=== PATIENT | male | born 1955 | race Caucasian/White ===

== ENCOUNTER 2022-01-25 15:27 | Inpatient (IN) | payer MEDICARE, SELFPAY ==
--- NOTE | 2022-01-12 15:19 | PC.NURSE ---
Report to the Outpatient Waiting Room, entrance under the green pavilion located off [facility], at time _1000 on date __01/24/22 . OR Time: _1200 . - You and your visitor will be asked to self-screen and do not enter if you have any COVID symptoms. - Only one visitor and NO children visitors are allowed at this time. - The patient visitor is requested to leave or wait in car when not with patient due to restrictions. - A mask is required within the hospital. Patients may have clear liquids (water, carbonated beverages, clear teas, apple juice) until 3 hours prior to surgery with a maximum of 20 ounces. - No food from midnight until time of surgery - Infants may have breast milk until 4 hours before surgery, infant formula 6 hours prior to surgery. - Children will be allowed to drink immediately following surgery. If applicable, please bring a bottle or sippy cup to assist with drinking. Juice, water, soda, and popsicles are readily available. For infants on formula, please bring formula the day of surgery. Pacifiers are allowed. Take the following medications with a SIP of water the morning of surgery: NONE Medications to discontinue per physician __PT STATES _CLOPIDOGREL 5 DAYS PRE OP PER DR GILMORE Date to take last dose 01/18/22 Please no make-up, nail nepalese, hairspray, perfume, deodorant, or body powder the day of surgery. No jewelry (including any body piercings) or valuables the day of surgery, leave them at home. Please take a shower or bath the night before, or the morning of, surgery with an antibacterial soap. Wear comfortable, loose fitting clothing. Children are encouraged to wear pajamas. - Jewelry must be removed prior to entering the operating room. Rings and piercings that are not removed may be cut off. - The hospital will not accept responsibility for valuables. - Please leave all valuables, including medications, at home the day of surgery. HIBICLENS SHOWER MORNING OF SURGERY If you are going home after surgery, a licensed local company truck driver must drive you home. - NO public transportation without another adult. - We recommend that an adult stay with you for 24 hours following discharge. - We also recommend that you do not drive, make important decision, drink alcoholic beverages, or take any drugs that were not prescribed by your health care provider for at least 24 hours after your discharge time. For Pediatric surgeries, we recommend two adults accompany the child home (only one inside the building at this time). Follow any additional instructions given to you from your surgeon. If you or anyone in your household have experienced Covid symptoms in the past week, please notify your surgeon or the nurse liaison at the phone number below for possible testing. Telephone instructions given to ___PATIENT and asked if any additional questions and then verbalized understanding. Patient advised to call surgeon office or pre surgery nurse liaison [phone] if any additional questions.
[2022-01-12 15:29] VITALS: BMI 38.5
--- NOTE | 2022-01-23 13:34 | P.PNAN_ITS ---
Anes - Initial Pre Proc Eval Procedure: Operation Date: 01/24/22 12:00 Proposed Procedures p Laparoscopic Repair Ventral Hernia with Mesh - Haroon Rodriguez MD s Removal of Left Arm Lipoma - Haroon Rodriguez MD Date/Time: 01/23/22 13:34 Surgeon: Haroon Rodriguez MD Pre Op Diagnosis: Ventral Hernia, Lt Arm Lipoma Patient Data Age: 66 Gender: M Height: 1.88 m Weight: 136.1 kg Allergies Allergy/AdvReac Type Severity Reaction Status Date / Time No Known Allergies Allergy Verified 01/24/22 12:17 Home Medications Medication Instructions Recorded Confirmed Type clopidogrel 75 mg tablet (Plavix) 75 mg PO DAILY 12/20/21 01/12/22 History olmesartan 40 mg tablet 40 mg PO DAILY 12/20/21 01/12/22 History omeprazole 40 mg capsule,delayed 40 mg PO DAILY 12/20/21 01/12/22 History release simvastatin 40 mg tablet 40 mg PO DAILY 12/20/21 01/12/22 History Patient hx anesthesia problems: none Family hx anesthesia problems: none Results Review: All pre-operative results and documents have been reviewed as part of the pre- operative evaluation. [facility] Past Medical History Medical History (Updated 01/23/22 @ 13:35 by Lance Ureña DO) COPD (chronic obstructive pulmonary disease) GERD (gastroesophageal reflux disease) High cholesterol Hypertension JON (obstructive sleep apnea) CPAP TIA (transient ischemic attack) 2015 Surgical History Surgical History H/O umbilical hernia repair Dr. 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 Informed Consent: The patient's anesthetic plan and its attendant risks and benefits were discussed with the patient/family/POA. Questions were solicited and answers provided to the satisfaction of the patient/family/POA.
[2022-01-24] VITALS (11 sets, daily range): BP systolic 138–166; BP diastolic 79–92; PULSE 66–98; RESP 12–216; TEMP 36.1–36.8; O2SAT 94–99
--- NOTE | 2022-01-24 11:42 | WPDHPUPDATE1 ---
History and Physical Update Update Date/Time: 01/24/22 11:42 History and Physical has been reviewed, including an updated exam of the patient. There are NO changes in the patient's condition. Risks, benefits, and alternatives have been discussed and questions answered. Patient agrees to proceed with procedure.
[2022-01-24] MEDS: LACTATED RINGERS 1,000 ML 30 ML IV CONT ×2 (12:00→17:09)
[2022-01-24] MEDS: ACETAMINOPHEN 500 MG TABLET 1000 MG PO (12:15)
[2022-01-24] MEDS: KETOROLAC 15 MG/ML VIAL (*BKC) IV PUSH (12:15)
--- NOTE | 2022-01-24 12:36 | ECG_ITS ---
Measurements Intervals [place] Rate: 61 P: 44 SD: 177 QRS: -10 QRSD: 128 T: 38 QT: 420 QTc: 424 Interpretive Statements SINUS RHYTHM RIGHT BUNDLE BRANCH BLOCK ABNORMAL ECG NO PREVIOUS ECG AVAILABLE FOR COMPARISON Electronically Signed On 01-24-2022 14:36:45 CDT by Art Bills D.O.
[2022-01-24] MEDS: ceFAZolin 3 GM/D5W 100 ML 100 ML IVPB (14:22)
[2022-01-24] MEDS: BUPIVACAINE/EPINEPHRINE 0.25% 50 ML VIAL INFILTRATE (16:50)
--- NOTE | 2022-01-24 17:22 | W.PM.PROC2 ---
Procedure Note - Detailed Date of Procedure 01/24/22 Pre-op Diagnosis Recurrent ventral Hernia, Lt Arm Lipoma Post-op Diagnosis Other (Recurrent ventral hernia, recurrent intramuscular left arm lipoma) Procedure Performed Excision 7 cm intramuscular recurrent left deltoid lipoma, laparoscopic repair of recurrent ventral hernia Surgeon Haroon Rodriguez MD Claims Representative Linda Bond [facility] Anesthesia General and Local (0.25% Marcaine with epinephrine) Indications Patient had a lipoma removed from the left deltoid area at least 15 years ago. Over time he developed a recurrent subcutaneous mass that has gotten larger and is bothersome. Exam in the office showed a recurrent lipoma about 7.6 cm in length. He has a scar at the lower edge of the recurrent lipoma from the previous excision. Patient also has a history of previous umbilical hernia repair at another facility. He could recall if mesh was used at that initial repair. He now has a painful bulge above the umbilicus consistent with a recurrent ventral hernia. He is taken to surgery now for excision of the recurrent lipoma as well as laparoscopic repair of the recurrent ventral hernia with mesh. Findings The lipoma measured 7 cm x 3 cm x 3 cm. It was intramuscular in the deltoid muscle. It was able to be completely excised. The hernia was a well-defined ventral hernia above the umbilicus. There was some suture material in the area of the umbilicus from the previous repair. This was removed. We did not see any other hernias in the area. The defect was small, only about 2 cm but the entire periumbilical area was thin and very vulnerable to additional hernia. Description of Procedure Patient was taken to surgery and placed in a supine position. He was induced into general anesthesia. The left upper arm as well as the entire abdomen was prepped and draped. We turned our attention 1st to the left upper arm. The area of the subcutaneous mass had been marked on the skin in the preoperative holding area. A transversely oriented incision over the mass was marked on the skin. Local was infiltrated in the area of the anticipated incision and in the deeper subcutaneous tissues. We also infiltrated local all around the mass as well. Incision was made deepened through the subcutaneous. Despite looking for a lipoma none was really found. We continued our dissection and then found a lipoma. It was the very superficial aspect of an intramuscular lipoma lying between the fibers of the left deltoid muscle near its insertion. We carefully dissected the deltoid fibers off the lipoma and then continued our dissection circumferentially exposing the lipoma throughout its length. I was then able to dissect the most proximal aspect of the lipoma down to its base. I dissected this upper aspect of the lipoma off the base and then continued this dissection towards the more distal aspect of the lipoma. Eventually we freed the distal aspects of the lipoma from the surrounding tissues and eventually dissected the entire lipoma free of the deltoid muscle. It was removed as 1 mass. I measured it and it was 7 cm x 3 cm x 3 cm. It was sent to pathology in formalin. The wound was inspected and made hemostatic. Any additional fatty tissue in the area of the lipoma was removed so as not to get yet another recurrence. The wound was hemostatic. I closed the subcutaneous fascia with interrupted 4-0 Vicryl suture. The skin was closed with interrupted subcuticular 4-0 Vicryl suture. The wound was dressed with Exofin surgical adhesive. We then covered this area with the drapes that had been placed previously and were the drapes used for the laparoscopic hernia repair. The abdomen was exposed adequately. The initial trocar was a 5 mm left subcostal trocar. This was then applied Medical optical trocar was placed in the abdominal cavity. We insufflated and were able to visualize the hernia. Two more left-sided trocars were placed. The lef
--- NOTE | 2022-01-24 18:20 | PC.NURSE ---
This patient, Niels Persaud, was admitted to 3 [facility] Surg Room 300-01. Patient/family oriented to hospital policies and general routines including ID bracelet, bed and alarms, visiting hours, pain management, procedures, bathroom and other care routines, personal items, smoking policy, room service/diet, and visiting hours. Information on how to activate the Rapid Response Team has been discussed. Patient/Family are encouraged to report perceived risks to care and to ask questions if they do not understand what they are told or what they should do.
[2022-01-24] MEDS: LACTATED RINGERS 1,000 ML 80 ML IV CONT (18:49)
[2022-01-24] MEDS: ACETAMINOPHEN 500 MG TABLET PO (22:40)
[2022-01-25 03:52] VITALS: BP 148/75; PULSE 70; RESP 16; TEMP 36.5; O2SAT 93
[2022-01-25] MEDS: LACTATED RINGERS 1,000 ML 80 ML IV CONT ×2 (06:20→19:40)
[2022-01-25 06:33] LABS: Hematocrit 40.4 % (42.0-52.0); Hemoglobin 13.7 g/dL (14.0-18.0); Mean Corpuscular HGB Conc 33.9 g/dl (32-36); Mean Corpuscular Hemoglobin 29.7 pg (26-34); Mean Corpuscular Volume 87.4 fl (80-100); Mean Platelet Volume 10.3 fl (7.4-10.4); Platelet Count Result 205 k/mm3 (150-375); Red Blood Count 4.62 M/mm3 (4.6-6.20); Red Cell Distribution Width 12.9 % (11.5-14.5); White Blood Count 12.9 K/mm3 (4.5-10.0)
[2022-01-25 06:44] LABS: Anion Gap 11 mmol/L (8-16); Blood Urea Nitrogen 22 mg/dL (9-20); Carbon Dioxide 22 mmol/L (22-30); Chloride 103 mmol/L (98-107); Estimated CRCL calculation 73 ml/min; Estimated Glomerular Filt Rate 55; Glucose 147 mg/dL (65-110); Sodium 136 mmol/L (137-145)
[2022-01-25 07:52] VITALS: BP 154/76; PULSE 70; RESP 18; TEMP 36.6; O2SAT 95
[2022-01-25] MEDS: ACETAMINOPHEN 500 MG TABLET PO ×2 (08:15→14:11)
[2022-01-25] MEDS: PANTOPRAZOLE 40 MG TABLET PO (08:15)
[2022-01-25] MEDS: OLMESARTAN MEDOXOMIL 20 MG TABLET 40 MG PO (08:16)
[2022-01-25] MEDS: SIMVASTATIN 20 MG TABLET 40 MG PO (08:16)
[2022-01-25] MEDS: BENZOCAINE/MENTHOL (*BKC) 18 EA LOZENGE 1 LOZENGE PO (08:29)
[2022-01-25] MEDS: ENOXAPARIN 40 MG/0.4 ML SYRINGE SUB-Q (08:30)
--- NOTE | 2022-01-25 08:51 | WPDANESPN ---
Anes - Prog Note Post-Op Date/Time: 01/25/22 08:51 Cardiovascular status: normal Respiratory status: normal Airway patency: baseline Mental status: baseline Post-Op hydration status: normal Vital Signs: Last Vital Signs Temp 36.6 C 01/25/22 07:52 Pulse 70 01/25/22 07:52 Resp 18 01/25/22 07:52 BP 154/76 H 01/25/22 07:52 Pulse Ox 95 01/25/22 07:52 O2 Del Method Room Air 01/24/22 18:29 O2 Flow Rate 8 01/24/22 17:20 Pain Score (VAS): 2 I/O: Intake & Output 01/24/22 01/25/22 01/25/22 23:59 07:59 15:59 Intake Total 100 1000 Output Total 200 Balance 100 800 Laboratory Tests 01/25/22 05:43 01/25/22 05:43 01/25/22 01/25/22 05:43 05:43 WBC 12.9 H RBC 4.62 Hgb 13.7 L Hct 40.4 L MCV 87.4 MCH 29.7 MCHC 33.9 RDW 12.9 Plt Count 205 MPV 10.3 Sodium 136 L Potassium 4.0 Chloride 103 Carbon Dioxide 22 Anion Gap 11 BUN 22 H Creatinine 1.30 Estim Creat Clear Calc 73 Estimated GFR 55 L Glucose 147 H Calcium 9.0 Post-procedural complaints: none Patient Feedback: Patient satisfied with anesthetic care.
[2022-01-25 11:52] VITALS: BP 149/80; PULSE 75; RESP 16; TEMP 36.7; O2SAT 95
--- NOTE | 2022-01-25 13:24 | PM.PNGS ---
Progress Note: A&P Assessment and Plan (1) Ventral hernia without obstruction or gangrene: Code(s): K43.9 - Ventral hernia without obstruction or gangrene Status: Chronic Assessment and Plan: appropriate postoperative incisional pain. Patient doing okay. Continues to use analgesics. Needs help with ambulation. Continue with in-hospital care. 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 (4) History of TIA (transient ischemic attack): Code(s): Z86.73 - Personal history of transient ischemic attack (TIA), and cerebral infarction without residual deficits Status: Chronic Subjective Subjective Date/Time Seen: 01/25/22 13:24 Post Op day: 1 Patient reports: still having pain (Patient's knees to couple of times and has been experiencing pretty severe abdominal pain especially with movement.), tolerating liquids well, no flatus, no bowel movement and afebrile Review of Systems Review of Systems: All systems reviewed & are unremarkable except as noted in HPI and below ( HPI) Exam Const: General: comfortable and no acute distress; No confusion Orientation/consciousness: patient oriented x3 and No confusion GI: Inspection: non-distended, incision ( incisions dry and healing well. Minimal bruising) and obesity GI Palp: Yes Soft to palpation, Yes Tenderness to palpation present (GI) ( diffuse but appropriate tenderness), No Guarding due to palpation present (GI) and No Rebound tenderness present Auscultation: normal bowel sounds Neuro: General: patient oriented x3, no focal motor deficits and No confusion Extrem: General: no calf tenderness and no edema Right upper extremity: shoulder/upper arm ( incision dry and intact, no hematoma or seroma.) tenderness and swelling; no ecchymosis and no crepitus Psych: Affect: normal affect Insight: Good insight present (Psych) Judgement: Good judgement present (Psych) Objective Data Vital Signs Vital Signs: Vital Signs - 24 hr 01/24/22 17:09 01/24/22 17:20 01/24/22 17:35 Temperature 36.3 C L Pulse Rate 98 79 84 Respiratory Rate 19 16 14 Blood Pressure 145/88 H 142/83 H 149/79 H Pulse Oximetry 98 99 96 Oxygen Delivery Simple Face Mask Simple Face Mask Room Air Oxygen Flow Rate 8 8 01/24/22 17:50 01/24/22 18:04 01/24/22 18:29 Temperature Pulse Rate 73 71 Respiratory Rate 12 18 Blood Pressure 142/85 H 151/88 H Pulse Oximetry 95 96 Oxygen Delivery Room Air Room Air Room Air Oxygen Flow Rate 01/24/22 18:20 01/24/22 18:35 01/24/22 19:05 Temperature 36.6 C 36.3 C L 36.2 C L Pulse Rate 72 75 72 Respiratory Rate 18 16 216 H Blood Pressure 141/89 H 139/88 138/92 H Pulse Oximetry 95 94 94 Oxygen Delivery Oxygen Flow Rate 01/24/22 19:52 01/24/22 23:52 01/25/22 03:52 Temperature 36.1 C L 36.8 C 36.5 C Pulse Rate 78 78 70 Respiratory Rate 18 18 16 Blood Pressure 165/86 H 166/83 H 148/75 H Pulse Oximetry 95 94 93 Oxygen Delivery Oxygen Flow Rate 01/25/22 07:52 01/25/22 11:52 Temperature 36.6 C 36.7 C Pulse Rate 70 75 Respiratory Rate 18 16 Blood Pressure 154/76 H 149/80 H Pulse Oximetry 95 95 Oxygen Delivery Oxygen Flow Rate Intake/Output Intake/Output: Intake & Output 01/22/22 01/23/22 01/24/22 01/25/22 23:59 23:59 23:59 23:59 Intake Total 200 1480 Output Total 200 Balance 200 1280 Meds/Results Medications: Active Medications Generic Name Dose Route Start Last Admin Trade Name Ricq PRN Reason Stop Dose Admin Acetaminophen 500 mg 01/24/22 18:07 01/25/22 08:15 Acetaminophen 500 Mg Tablet PO
[2022-01-25] MEDS: polyethylene glycoL 3350 17 GM POWD.PACK PO (14:11)
[2022-01-25 15:52] VITALS: BP 159/72; PULSE 74; RESP 20; TEMP 36.8; O2SAT 94
[2022-01-25] MEDS: HYDROcodone/acetaminophen (*CRX) 5-325 MG TABLET 1 TAB PO (19:37)
[2022-01-25] MEDS: SENNA/DOCUSATE SODIUM TABLET 2 TAB PO (19:39)
[2022-01-25 21:49] VITALS: BP 150/87; PULSE 65; RESP 18; TEMP 36.9; O2SAT 95
[2022-01-26] MEDS: ACETAMINOPHEN 500 MG TABLET PO ×3 (04:13→20:16)
[2022-01-26 06:00] VITALS: BP 146/87; PULSE 62; RESP 20; TEMP 36.6; O2SAT 97
[2022-01-26 07:49] LABS: Hemoglobin 12.7 g/dL (14.0-18.0); Mean Corpuscular HGB Conc 32.6 g/dl (32-36); Mean Corpuscular Hemoglobin 29.9 pg (26-34); Mean Corpuscular Volume 91.8 fl (80-100); Mean Platelet Volume 10.3 fl (7.4-10.4); Platelet Count Result 193 k/mm3 (150-375); Red Blood Count 4.25 M/mm3 (4.6-6.20); Red Cell Distribution Width 13.2 % (11.5-14.5); White Blood Count 6.8 K/mm3 (4.5-10.0)
[2022-01-26 08:06] LABS: Anion Gap 9 mmol/L (8-16); Blood Urea Nitrogen 18 mg/dL (9-20); Calcium 8.4 mg/dL (8.4-10.2); Carbon Dioxide 26 mmol/L (22-30); Chloride 106 mmol/L (98-107); Estimated CRCL calculation 79 ml/min; Estimated Glomerular Filt Rate > 60; Glucose 99 mg/dL (65-110); Potassium 4.1 mmol/L (3.4-5.0); Sodium 141 mmol/L (137-145)
[2022-01-26] MEDS: LACTATED RINGERS 1,000 ML 80 ML IV CONT (08:09)
[2022-01-26] MEDS: OLMESARTAN MEDOXOMIL 20 MG TABLET 40 MG PO (08:09)
[2022-01-26] MEDS: polyethylene glycoL 3350 17 GM POWD.PACK PO (08:09)
[2022-01-26] MEDS: SIMVASTATIN 20 MG TABLET 40 MG PO (08:09)
[2022-01-26] MEDS: ENOXAPARIN 40 MG/0.4 ML SYRINGE SUB-Q (08:10)
[2022-01-26] MEDS: PANTOPRAZOLE 40 MG TABLET PO (08:10)
--- NOTE | 2022-01-26 08:17 | PM.PNGS ---
Progress Note: A&P Assessment and Plan (1) Ventral hernia without obstruction or gangrene: Code(s): K43.9 - Ventral hernia without obstruction or gangrene Status: Chronic Assessment and Plan: still having quite a bit of postoperative pain. continue care in the hospital for assistance and pain control. Wounds healing well. 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 - Benign lipomatous neoplasm, unspecified Status: Chronic Assessment and Plan: Wound healing well (3) halfway (current) use of antithrombotics/antiplatelets: Code(s): Z79.02 - halfway (current) use of antithrombotics/antiplatelets Status: Chronic Assessment and Plan: possibly restart Plavix tomorrow (4) History of TIA (transient ischemic attack): Code(s): Z86.73 - Personal history of transient ischemic attack (TIA), and cerebral infarction without residual deficits Status: Chronic Subjective Subjective Date/Time Seen: 01/26/22 08:17 Post Op day: 2 Patient reports: still having pain ( very uncomfortable), tolerating liquids well ( tolerating low-fiber diet), no flatus, no bowel movement and afebrile Exam Const: General: cooperative, alert, awake and uncomfortable Nutritional Appearance: obese GI: Inspection: non-distended, incision ( incisions dry and healing well) and obesity GI Palp: Yes abdominal tenderness ( diffuse postoperative tenderness), Yes Soft to palpation, No Hernia present and No Palpable mass present Extrem: Left upper extremity: shoulder/upper arm ( incision dry and healing well) Objective Data Vital Signs Vital Signs: Vital Signs - 24 hr 01/25/22 11:52 01/25/22 15:52 01/25/22 21:49 Temperature 36.7 C 36.8 C 36.9 C Pulse Rate 75 74 65 Respiratory Rate 16 20 18 Blood Pressure 149/80 H 159/72 H 150/87 H Pulse Oximetry 95 94 95 01/26/22 06:00 Temperature 36.6 C Pulse Rate 62 Respiratory Rate 20 Blood Pressure 146/87 H Pulse Oximetry 97 Intake/Output Intake/Output: Intake & Output 01/23/22 01/24/22 01/25/22 01/26/22 23:59 23:59 23:59 23:59 Intake Total 200 3270 1200 Output Total 200 Balance 200 3070 1200 Meds/Results Medications: Active Medications Generic Name Dose Route Start Last Admin Trade Name Freq PRN Reason Stop Dose Admin Acetaminophen 500 mg 01/24/22 18:07 01/26/22 04:13 Acetaminophen 500 Mg Tablet PO 500 mg Q6H PRN Administration Mild Pain (1-3) or Fever Hydrocodone Bitart/Acetaminophen 1 tab 01/24/22 18:07 01/25/22 19:37 Hydrocodone/Acetaminophen (*Crx) 5-325 Mg Tablet PO 1 tab Q4H PRN Administration Pain Rated 4-6 Hydrocodone Bitart/Acetaminophen 1 tab 01/24/22 18:07 Hydrocodone/Acetaminophen (*Crx) 10-325 Mg Tablet PO Q4H PRN Pain Rated 7-10 Benzocaine 1 lozenge 01/25/22 08:05 01/25/22 08:29 Benzocaine/Menthol (*Bkc) 18 Ea Lozenge PO 1 lozenge PRN PRN Administration Cough Enoxaparin Sodium 40 mg 01/25/22 09:00 01/26/22 08:10 Enoxaparin 40 Mg/0.4 Ml Syringe SUB-Q 40 mg DAILY PEPITO Administration Lactated Ringer's 1,000 mls @ 80 mls/hr 01/24/22 18:07 01/26/22 08:09 Lr - Lactated Ringers Iv IV CONT 80 mls/hr .[id number] PEPITO Administration Ibuprofen 800 mg 01/24/22 18:07 Ibuprofen 400 Mg Tablet PO Q6H PRN Pain Rated 1-3 Morphine Sulfate 2 mg 01/24/22 18:07 Morphine Sulfate (*Crx) 2 Mg/Ml Inj IV PUSH Q2H PRN Pain Rated 4-6 Morphine Sulfate 4 mg 01/24/22 18:07 Morphine Sulfate (*Crx) 4 Mg/Ml Inj IV PUSH Q2H PRN Pain Rated 7-10 Naloxone HCl 0.1 mg 01/24/22 18:07 Naloxone Hcl 0.4 Mg/Ml Vial IV PUSH Q2M PRN Opiate Reversal Olmesartan 40 mg 01/25/22 09:00 01/26/22 08:09 Olmesartan Medoxomil 20 Mg Tablet PO 40 mg DAILY PEPITO Administration Ondansetron HCl 4 mg 01/24/22 18:07 Ondansetron Inj 4 Mg/2 Ml Vial IV PUSH Q4H PRN Nausea And Vomiting Pant
[2022-01-26 14:29] VITALS: BP 143/83; PULSE 70; RESP 18; TEMP 36.2; O2SAT 94
[2022-01-26] MEDS: SENNA/DOCUSATE SODIUM TABLET 2 TAB PO (20:17)
[2022-01-26] MEDS: BENZOCAINE/MENTHOL (*BKC) 18 EA LOZENGE 1 LOZENGE PO (21:31)
[2022-01-26 22:39] VITALS: BP 161/78; PULSE 66; RESP 18; TEMP 36.6; O2SAT 97
[2022-01-27] MEDS: BENZOCAINE/MENTHOL (*BKC) 18 EA LOZENGE 1 LOZENGE PO ×2 (00:01→08:18)
[2022-01-27 06:00] VITALS: BP 161/78; PULSE 56; RESP 18; TEMP 36.7; O2SAT 97
[2022-01-27 06:09] LABS: Hematocrit 40.1 % (42.0-52.0); Hemoglobin 13.5 g/dL (14.0-18.0); Mean Corpuscular HGB Conc 33.7 g/dl (32-36); Mean Corpuscular Hemoglobin 30.5 pg (26-34); Mean Corpuscular Volume 90.5 fl (80-100); Mean Platelet Volume 10.1 fl (7.4-10.4); Platelet Count Result 200 k/mm3 (150-375); Red Blood Count 4.43 M/mm3 (4.6-6.20); Red Cell Distribution Width 12.9 % (11.5-14.5); White Blood Count 6.6 K/mm3 (4.5-10.0)
[2022-01-27 06:19] LABS: Anion Gap 9 mmol/L (8-16); Blood Urea Nitrogen 14 mg/dL (9-20); Calcium 9.3 mg/dL (8.4-10.2); Carbon Dioxide 22 mmol/L (22-30); Chloride 107 mmol/L (98-107); Estimated CRCL calculation 86 ml/min; Estimated Glomerular Filt Rate > 60; Glucose 90 mg/dL (65-110); Potassium 3.8 mmol/L (3.4-5.0); Sodium 138 mmol/L (137-145)
[2022-01-27] MEDS: ACETAMINOPHEN 500 MG TABLET PO (08:09)
[2022-01-27] MEDS: ENOXAPARIN 40 MG/0.4 ML SYRINGE SUB-Q (08:09)
[2022-01-27] MEDS: PANTOPRAZOLE 40 MG TABLET PO (08:10)
[2022-01-27] MEDS: SIMVASTATIN 20 MG TABLET 40 MG PO (08:10)
[2022-01-27] MEDS: OLMESARTAN MEDOXOMIL 20 MG TABLET 40 MG PO (08:10)
[2022-01-27] MEDS: polyethylene glycoL 3350 17 GM POWD.PACK PO (08:14)
--- NOTE | 2022-01-27 09:31 | PM.PNGS ---
Progress Note: A&P Assessment and Plan (1) Ventral hernia without obstruction or gangrene: Code(s): K43.9 - Ventral hernia without obstruction or gangrene Status: Chronic Assessment and Plan: He thinks the postoperative pain is improve by 1/2 today and he is moving around with much better ability with less discomfort as he does so.. continue care in the hospital for assistance and pain control. Wounds healing well. Still no bowel movement so have ordered 1 dose of milk a magnesia for noon if no bowel movement by then. ( Patient continues to take daily Dulcolax tablets in the evening and MiraLax in a.m.). 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 Status: Chronic Assessment and Plan: possibly restart Plavix tomorrow (4) History of TIA (transient ischemic attack): Code(s): Z86.73 - Personal history of transient ischemic attack (TIA), and cerebral infarction without residual deficits Status: Chronic Subjective Subjective Date/Time Seen: 01/27/22 09:31 Post Op day: 3 (Gradually improving) Patient reports: no new complaints, feels better ( has much less generalized abdominal wall soreness), pain is less, flatus and no bowel movement Review of Systems Review of Systems: All systems reviewed & are unremarkable except as noted in HPI and below Constitutional: Constitutional: Reports as per HPI, Denies chills and Denies fever(s) Cardiovascular: Cardiovascular: Denies chest pain and Denies dyspnea Respiratory: Respiratory: Reports no additional respiratory complaints and Denies dyspnea Gastrointestinal: Gastrointestinal: Reports as per HPI and Denies bloating Musculoskeletal: Musculoskeletal: Reports no additional musculoskeletal complaints Neurologic: Denies memory loss Psychiatric: Psychiatric: Denies anxiety and Denies memory loss Exam Const: General: cooperative, alert, awake and uncomfortable Nutritional Appearance: obese GI: Inspection: non-distended, incision ( incisions dry and healing well) and obesity GI Palp: Yes abdominal tenderness ( diffuse postoperative tenderness), Yes Soft to palpation, No Hernia present and No Palpable mass present Extrem: Left upper extremity: shoulder/upper arm ( incision dry and healing well) Objective Data Vital Signs Vital Signs: Vital Signs - 24 hr 01/26/22 10:00 01/26/22 14:29 01/26/22 20:00 Temperature 36.2 C L Pulse Rate 70 Respiratory Rate 18 Blood Pressure 143/83 H Pulse Oximetry 94 Oxygen Delivery Room Air Room Air 01/26/22 22:39 01/27/22 06:00 01/27/22 08:00 Temperature 36.6 C 36.7 C Pulse Rate 66 56 L Respiratory Rate 18 18 Blood Pressure 161/78 H 161/78 H Pulse Oximetry 97 97 Oxygen Delivery Room Air Intake/Output Intake/Output: Intake & Output 01/24/22 01/25/22 01/26/22 01/27/22 23:59 23:59 23:59 23:59 Intake Total 200 3270 2470 500 Output Total 200 Balance 200 3070 2470 500 Meds/Results Medications: Active Medications Generic Name Dose Route Start Last Admin Trade Name Freq PRN Reason Stop Dose Admin Acetaminophen 500 mg 01/24/22 18:07 01/27/22 08:09 Acetaminophen 500 Mg Tablet PO 500 mg Q6H PRN Administration Mild Pain (1-3) or Fever Hydrocodone Bitart/Acetaminophen 1 tab 01/24/22 18:07 01/25/22 19:37 Hydrocodone/Acetaminophen (*Crx) 5-325 Mg Tablet PO 1 tab Q4H PRN Administration Pain Rated 4-6 Hydrocodone Bitart/Acetaminophen 1 tab 01/24/22 18:07 Hydrocodone/Acetaminophen (*Crx) 10-325 Mg Tablet PO Q4H PRN Pain Rated 7-10 Benzocaine 1 lozenge 01/25/22 08:05 01/27/22 08:18 Benzocaine/Menthol (*Bkc) 18 Ea Loze
[2022-01-27 09:45] VITALS: O2SAT 96
[2022-01-27] MEDS: MAGNESIUM HYDROXIDE SUSP 30 ML UDC PO (12:06)
[2022-01-27] MEDS: CLOPIDOGREL BISULFATE 75 MG TABLET PO (12:07)
[2022-01-27 14:00] VITALS: BP 151/75; PULSE 64; RESP 18; TEMP 36.3; O2SAT 97
[2022-01-27] MEDS: ACETAMINOPHEN 325 MG TABLET 650 MG PO ×2 (14:30→19:59)
[2022-01-27] MEDS: SENNA/DOCUSATE SODIUM TABLET 2 TAB PO (19:59)
[2022-01-27 22:00] VITALS: BP 171/81; PULSE 65; RESP 19; TEMP 36.4; O2SAT 95
[2022-01-28] MEDS: ACETAMINOPHEN 325 MG TABLET 650 MG PO ×2 (03:37→08:10)
[2022-01-28 05:51] VITALS: BP 169/88; PULSE 57; RESP 17; TEMP 36.5; O2SAT 95
[2022-01-28] MEDS: OLMESARTAN MEDOXOMIL 20 MG TABLET 40 MG PO (08:11)
[2022-01-28] MEDS: ENOXAPARIN 40 MG/0.4 ML SYRINGE SUB-Q (08:11)
[2022-01-28] MEDS: CLOPIDOGREL BISULFATE 75 MG TABLET PO (08:11)
[2022-01-28] MEDS: PANTOPRAZOLE 40 MG TABLET PO (08:11)
[2022-01-28] MEDS: SIMVASTATIN 20 MG TABLET 40 MG PO (08:11)
[2022-01-28] MEDS: polyethylene glycoL 3350 17 GM POWD.PACK PO (08:13)
--- NOTE | 2022-01-28 08:59 | PM.DS ---
DS: Admitting Diagnosis Discharge Date 01/28/2022 Admitting Diagnosis ventral incisional hernia [id number] obstruction or gangrene DS: Discharge Diagnosis Discharge Diagnosis (1) Ventral hernia without obstruction or gangrene: Code(s): K43.9 - Ventral hernia without obstruction or gangrene Status: Chronic Assessment and Plan: This was the main reason for the patient's admission. Please see the op note. Patient underwent laparoscopic repair of same with mesh. He also had excision of a lipoma. Patient had a significant amount of postop pain but did not want to take narcotic pain medication. His pain was controlled with Tylenol and or IV ibuprofen and he gradually improved. On the date of discharge he was tolerating a soft diet walking in the halls and moving well. He had a bowel movement the day of and the night before discharge. He was given home going instructions. (2) Mass of left upper extremity: Code(s): R22.32 - Localized swelling, mass and lump, left upper limb Status: Acute Assessment and Plan: Pathology was completed in this showed it to be a benign lipoma. (3) Obesity (BMI 30-39.9): Code(s): E66.9 - Obesity, unspecified Status: Acute Assessment and Plan: Encouraged patient to stay on a low-fat diet and until he was having normal bowel movements again a soft diet. 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 It was excised while he was under general anesthesia. Pathology report discussed with the patient showing benign lipoma. Incision is doing well with no signs of infection. 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 He plans to take Tylenol not NSAIDs at home for pain. (6) Hypertension: Code(s): I10 - Essential (primary) hypertension Status: Acute Assessment and Plan: Patient has resumed his normal medications for this. DS: Summary Hospital Course Reason for hospitalization: Postoperative care after laparoscopic ventral incisional hernia repair with mesh and excision of a lipoma Hospital Course: This was the main reason for the patient's admission. Please see the op note. Patient underwent laparoscopic repair of same with mesh. He also had excision of a lipoma. Patient had a significant amount of postop pain but did not want to take narcotic pain medication. His pain was controlled with Tylenol and or IV ibuprofen and he gradually improved. On the date of discharge he was tolerating a soft diet walking in the halls and moving well. He had a bowel movement the day of and the night before discharge. He was given home going instructions. Status at Discharge Cognitive/behavioral status at discharge: normal Functional status at discharge: independent ambulation Overall status at discharge: patient is not back to baseline ( still moving slowly but adequately for walking and caring for himself.) Time Spent with Patient Time attestation: Total time spent providing and/or coordinating discharge services: Time spent: Less than 30 minutes Exam Const: General: cooperative, comfortable, alert and awake Orientation/consciousness: patient oriented x3 HENMT: Head: normal to inspection Mouth: Yes moist mucous membranes Eyes: Sclera: sclerae normal Pupils: Equal, round and reactive pupils present Neck: Neck: normal visual inspection and no JVD Chest: Chest palpation & inspection: normal inspection of the chest Resp: Effort & Inspection: normal respiratory effort Auscultation: clear to auscultation bilaterally Cardio: Jugular venous distension:
== END 2022-01-28 09:50 | disposition home or self-care (01) | DRG 355 ==
LOC: ANHSURGERY 16:02 → ANH3MEDSUR 16:02
PROVIDERS: Admitting Provider Surgery; PCP Internal Medicine; Visit Provider Surgery
PROC: 0WUF4JZ Supplement Abdominal Wall with Synthetic Substitute, Percutaneous Endoscopic Approach (ICD-10-PCS; principal; 2022-01-24 13:00)
PROC: 0WUF4JZ Supplement Abdominal Wall with Synthetic Substitute, Percutaneous Endoscopic Approach (ICD-10-PCS; 2022-01-24 13:00)
DX: K43.2 Incisional hernia without obstruction or gangrene (principal); D17.9 Benign lipomatous neoplasm, unspecified; E66.9 Obesity, unspecified; Z68.38 Body mass index [BMI] 38.0-38.9, adult; I10 Essential (primary) hypertension; J44.9 Chronic obstructive pulmonary disease, unspecified; K21.9 Gastro-esophageal reflux disease without esophagitis; E78.00 Pure hypercholesterolemia, unspecified; G47.33 Obstructive sleep apnea (adult) (pediatric); Z79.02 Long term (current) use of antithrombotics/antiplatelets; Z79.899 Other long term (current) drug therapy; Z86.73 Personal history of transient ischemic attack (TIA), and cerebral infarction without residual deficits; Z87.891 Personal history of nicotine dependence
CPT/HCPCS: 36415; 80048; 85027; 88304; 93005; A9270; C1781; G0378; J0690; J1100; J1650; J1885; J2250; J2405; J2704; J3010; J7120

== ENCOUNTER 2022-03-29 08:18 | Outpatient (CLI) | payer MEDICARE, SELFPAY ==
--- NOTE | 2022-03-29 08:25 | EST_ITS ---
Patient Info Name: Niels Persaud Age: 66 years : 1955 Gender: Male Ht: 74 in Wt: 290 lbs BSA: 2.67 m2 BP: 136 / 73 mmHg Exam Date: 03/29/2022 9:16 AM Exam Location: [facility] Patient Status: Outpatient Admit Date: 03/29/2022 Staff Ordering Physician: Garry Mcgrath DO Ornament Setter: Sherrie Curran RDCS Attending Provider: GARRY MCGRATH MD Referring Physician: Sanju PIÑA; Exercise Technologist: Julisa Whalen RDCS Exercise Physician: Garry Mcgrath DO Exam Type: CA stress echo Study Info Indications R06.00 - Dyspnea, unspecified Treadmill exercise stress echocardiogram is performed. Summary 1. 1. Negative Yfn exercise stress test for ischemic ST changes by ECG criteria. 2. 2. Reduced functional capacity, achieving 7 METs of workload. 3. 3. Hypertensive response to exercise. 4. 4. Appropriate HR response to exercise. 5. 5. Appropriate HR recovery at 1 minute post exercise. 6. 6. Negative stress echocardiogram for ischemia by wall motion analysis. 7. 7. Patient informed of the above results. Stress Echo Findings Left Ventricle Appropriate increase in LV endocardial thickening with systole. Appropriate augmentation of contractility with systole. No wall motion abnormality. Left Ventricle Normal LV systolic function, no wall motion abnormality. Protocol: Yfn Stress ECG Details Stage: REST Duration (min): 0 min : 53 sec Speed (mph): 0.0 Grade (%): 0 HR (bpm): 57 SBP (mmHg): 136 DBP (mmHg): 73 METS: --- Stage: REST Duration (min): 7 min : 9 sec Speed (mph): 0.0 Grade (%): 0 HR (bpm): 62 SBP (mmHg): 136 DBP (mmHg): 73 METS: --- Stage: STAGE 1 Duration (min): 1 min : 0 sec Speed (mph): 1.7 Grade (%): 10 HR (bpm): 91 SBP (mmHg): 136 DBP (mmHg): 73 METS: --- Stage: STAGE 1 Duration (min): 2 min : 0 sec Speed (mph): 1.7 Grade (%): 10 HR (bpm): 99 SBP (mmHg): 136 DBP (mmHg): 73 METS: --- Stage: STAGE 1 Duration (min): 3 min : 0 sec Speed (mph): 1.7 Grade (%): 10 HR (bpm): 107 SBP (mmHg): 186 DBP (mmHg): 81 METS: --- Stage: STAGE 2 Duration (min): 1 min : 0 sec Speed (mph): 2.5 Grade (%): 12 HR (bpm): 125 SBP (mmHg): 186 DBP (mmHg): 81 METS: --- Stage: STAGE 2 Duration (min): 1 min : 40 sec Speed (mph): 0.0 Grade (%): 0 HR (bpm): 134 SBP (mmHg): 186 DBP (mmHg): 81 METS: --- Stage: RECOVERY Duration (min): 0 min : 19 sec Speed (mph): 0.0 Grade (%): 0 HR (bpm): 129 SBP (mmHg): 215 DBP (mmHg): 81 METS: --- Stage: RECOVERY Duration (min): 1 min : 19 sec Speed (mph): 0.0 Grade (%): 0 HR (bpm): 86 SBP (mmHg): 215 DBP (mmHg): 81 METS: --- Stage: RECOVERY Duration (min): 2 min : 19 sec Speed (mph): 0.0 Grade (%): 0 HR (bpm): 71 SBP (mmHg): 190 DBP (mmHg): 67 METS: --- Stage: RECOVERY Duration (min):
--- NOTE | 2022-03-29 08:27 | ECG_ITS ---
Measurements Intervals Art Rate: 64 P: 64 NV: 181 QRS: -5 QRSD: 124 T: 55 QT: 396 QTc: 410 Interpretive Statements SINUS RHYTHM RIGHT BUNDLE BRANCH BLOCK ABNORMAL ECG COMPARED TO ECG 01/24/2022 12:52:40 NO SIGNIFICANT CHANGES Electronically Signed On 03-29-2022 10:14:46 BUSINESS SYSTEMS MANAGER by Art Bills D.O.
== END 2022-03-29 08:19 | disposition home or self-care (01) ==
PROVIDERS: PCP Internal Medicine; Visit Provider Internal Medicine Cardiovascular Disease
DX: I10 Essential (primary) hypertension (principal); R06.09 Other forms of dyspnea; R94.31 Abnormal electrocardiogram [ECG] [EKG]; I45.10 Unspecified right bundle-branch block
CPT/HCPCS: 93005; 93351

== ENCOUNTER 2022-07-10 13:37 | Inpatient (IN) | payer MEDICARE, SELFPAY ==
--- NOTE | ~2022-07-10 | CT_ITS ---
EXAMINATION: CT abdomen pelvis wo con DATE: 07/10/2022 15:30 INDICATION: Abdominal pain and vomiting. TECHNIQUE: Computed tomography (CT) of the abdomen and pelvis was performed without intravenous contr ast. Automated exposure control and iterative reconstruction technique were employed. The dose-length product was 1538.08 mGy-cm. COMPARISON: CT abdomen and pelvis 09/11/2016 FINDINGS: The visualized portions of the lung bases demonstrate chronic right-sided pleural thickenin g with peripheral rounded atelectasis. No pleural effusion. The heart size is normal. There are coron richard artery calcifications. No pericardial effusion. There is a small sliding hiatal hernia. There is diffuse hepatic steatosis. The gallbladder, spleen, pancreas, adrenal glands, and kidneys are normal. There is no urolithiasis. The prostate is mildly enlarged. There is a left inguinal hernia containin g fat. There is diverticulosis of the colon without evidence of diverticulitis. The appendix is domenica l. There are multiple dilated loops of small bowel with transition point at the widemouthed ventral h ernia containing small bowel. There are no pathologically enlarged lymph nodes. There is no free intr aperitoneal fluid. 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 There are old healed right rib fractures. Th ere is mild thoracic and lumbar spondylosis. IMPRESSION: 1. Small bowel obstruction with transition point at the umbilical hernia. Reviewed, dictated and finalized at location A. ICE OPERATIONS MANAGER
--- NOTE | ~2022-07-10 | XR_ITS ---
Supine views of the abdomen Clinical history: Small bowel obstruction COMPARISON: 07/12/2022 Findings: NG tube remains in place. Bowel gas pattern is nonspecific. No evidence for obstruction or free air. No abnormal mass lesion or calcification is seen. Osseous structures are intact. Impression: NG tube in place, with nonspecific bowel gas pattern. There is contrast throughout large and small tracie wel. Reviewed, dictated and finalized at location . OMER SERVICE DRIVER Impression: NG tube in place, with nonspecific bowel gas pattern. There is contrast through out large and small bowel.
--- NOTE | ~2022-07-10 | XR_ITS ---
EXAMINATION: XR sm bowel follow through WS DATE: 07/12/2022 12:17 INDICATION: Small bowel obstruction. TECHNIQUE: Oral contrast was administered, and a time course of radiographs of the abdomen was obtain ed. Fluoroscopy of the small bowel was not performed. Fluoroscopy exposure time was 0 minutes. The to sherly number of images was 10. COMPARISON: CT abdomen and pelvis 07/10/2022 FINDINGS: The nasogastric tube tip is in the stomach. There are multiple dilated loops of proximal small bowel. At 3 hours, there is faint contrast in decompressed distal small bowel. IMPRESSION: 1. Partial small bowel obstruction. Reviewed, dictated and finalized at location A. ODONTIC LABORATORY TECHNICIAN
--- NOTE | ~2022-07-10 | XR_ITS ---
XR chest 2V 07/10/2022 14:17 Indication: Weakness and dyspnea Procedure: AP and lateral views of the chest Comparison: 09/13/2016 Findings: There is stable chronic scarring of the right mid and lower lung with pleural thickening. S table cardiomediastinal silhouette. Left lung clear. Impression: 1: No acute cardiopulmonary disease. 2: Stable scarring/atelectasis right mid and lower lung compared with prior study. Reviewed, dictated and finalized at location L. ONAL AIRLINE PILOT Impression: 1: No acute cardiopulmonary disease. 2: Stable scarring/atelectasis right mid and lower lung compared with prior [facility].
--- NOTE | ~2022-07-10 | XR_ITS ---
Portable upright view of the abdomen Clinical history: NG tube placement Findings: NG tube is in satisfactory position. Stomach is air distended, with probable distended smal l bowel loops in the upper abdomen. No abnormal mass lesion or calcification is seen. Osseous structu res are intact. Impression: NG tube in satisfactory position. Possible small bowel obstruction, partially imaged. Reviewed, dictated and finalized at location . SUPERVISING TECHNICAL OPERATOR Impression: NG tube in satisfactory position. Possible small bowel obstruction, partially imaged.
--- NOTE | ~2022-07-10 | US_ITS ---
EXAMINATION: US renal BI DATE: 07/10/2022 22:12 INDICATION: Acute kidney injury TECHNIQUE: Multiple grayscale and Doppler ultrasound images of the kidneys were obtained. COMPARISON: CT abdomen and pelvis 07/10/2022 FINDINGS: The right kidney measures 11.6 x 5.3 x 6.2 cm. The left kidney measures 11.5 x 6.6 x 7.1 cm. The kidn eys demonstrate normal parenchymal echogenicity. There is no hydronephrosis. The bladder is normal. IMPRESSION: Unremarkable renal sonogram findings. Reviewed, dictated and finalized at location K. DER SET UP OPERATOR EXTERNAL
[2022-07-10 13:37] VITALS: BP 106/65; PULSE 95; RESP 16; TEMP 36.6; O2SAT 99
--- NOTE | 2022-07-10 13:47 | ECG_ITS ---
Measurements Intervals [place] Rate: 77 P: 21 NV: 162 QRS: 14 QRSD: 133 T: 39 QT: 389 QTc: 442 Interpretive Statements SINUS RHYTHM RIGHT BUNDLE-BRANCH BLOCK ABNORMAL ECG COMPARED TO ECG 03/29/2022 09:52:22 NO SIGNIFICANT CHANGES Electronically Signed On 07-10-2022 15:29:53 PRESIDENT AND CMO by Froylan Caballero M.D.
[2022-07-10 13:59] LABS: Hematocrit 45.8 % (42.0-52.0); Hemoglobin 15.5 g/dL (14.0-18.0); Mean Corpuscular HGB Conc 33.8 g/dl (32-36); Mean Corpuscular Hemoglobin 29.6 pg (26-34); Mean Corpuscular Volume 87.6 fl (80-100); Platelet Count Result 321 k/mm3 (150-375); Red Blood Count 5.23 M/mm3 (4.6-6.20); Red Cell Distribution Width 13.6 % (11.5-14.5); White Blood Count 6.2 K/mm3 (4.5-10.0)
[2022-07-10 14:13] LABS: Alanine Aminotransferase 33 U/L (6-50); Albumin Level 4.1 g/dL (3.5-5.1); Alkaline Phosphatase 95 U/L (38-126); Anion Gap 13 mmol/L (8-16); Aspartate Amino Transferase 22 U/L (17-59); Blood Urea Nitrogen 86 mg/dL (9-20); Calcium 8.7 mg/dL (8.4-10.2); Carbon Dioxide 18 mmol/L (22-30); Chloride 103 mmol/L (98-107); Estimated CRCL calculation 17 ml/min; Estimated Glomerular Filt Rate 10; Glucose 101 mg/dL (65-110); Potassium 3.6 mmol/L (3.4-5.0); Sodium 134 mmol/L (137-145)
[2022-07-10 14:24] LABS: Band Neutrophils Percent 23 % (0-6); Eosinophils Absolute Manual 0.06 K/mm3 (0.02-0.5); Eosinophils Percent Manual 1 % (0-4); Lymphocytes Absolute Manual 1.17 K/mm3 (1.1-4.5); Monocytes Absolute Manual 1.42 K/mm3 (0.1-0.90); Monocytes Percent Manual 23 % (3-9); Myelocytes Percent 1 %; Neutrophils Absolute Manual 3.41 K/mm3 (1.3-6.7); Neutrophils Percent Manual 32 % (46-73); Platelet Estimate Adequate (Adequate); Promyelocytes Percent 1 %; Schistocytes None Seen (NORMAL); Total Cells Counted 100
--- NOTE | 2022-07-10 15:16 | ED.WEAKNESS ---
HPI - Weakness General Chief complaint: Weakness Stated complaint: Weakness Time Seen by Provider: 07/10/22 14:30 History of Present Illness HPI Narrative: Patient is a 66-year-old male with a history of hyperlipidemia, hypertension, TIA presenting with generalized weakness. Patient states that for the last 4 to 5 days he has had profuse vomiting and diarrhea. States that he has been increasingly weak and lightheaded. States he has only urinated twice in the last 5 days. Complains of diffuse abdominal pain. No fevers or chills, chest pain, shortness of breath, cough, sore throat, dysuria, leg swelling. Related Data Home Medications Medication Instructions Recorded Confirmed clopidogrel 75 mg tablet (Plavix) 75 mg PO DAILY 12/20/21 07/10/22 olmesartan 40 mg tablet 40 mg PO DAILY 12/20/21 07/10/22 famotidine 40 mg tablet 40 mg PO DAILY PRN Acid Reflux 07/10/22 07/10/22 Allergies Allergy/AdvReac Type Severity Reaction Status Date / Time No Known Allergies Allergy Verified 07/10/22 13:42 Review of Systems Review of Systems: All systems reviewed & are unremarkable except as noted in HPI and below PMFSH Past Medical History Medical History Chronic obstructive pulmonary disease Gastroesophageal reflux disease Gout Hyperlipidemia Hypertension Obstructive sleep apnea on CPAP Transient ischemic attack (2015) Surgical History Surgical History History of tonsillectomy History of umbilical hernia repair Dr. Norton History of ventral hernia repair (01/2022) Status post excision of lipoma Status post transsphenoidal pituitary resection Family History Family History Father Heart disease Mother Diabetes mellitus Breast cancer Cerebrovascular accident Social History Social History Social History: Surrogate medical decision maker: Dolores Arce, friend. Code status: Full code. Smoking packs per day: 0.5 Smoking cigarettes per day: 10.0 Years smoked: 5 Smoking pack-years: 2.50 Smoking status: Former smoker Alcohol intake: current Drinks per week: 8 Substance use: never Lack of Transportation: No Lack of Food: Never True Current Housing: I Have Housing Concerned About Future Housing: No Difficulty Paying Gas/Electric Bills: No Difficulty Paying for Meds: No Currently Unemployed: No Education: Bachelor's Degree Difficulty w/ Childcare or Family Care: No Living arrangements: alone Additional living arrangements comments: The patient lives in his own home in [place]. 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 Spiritual care concerns: No Exam Narrative: GENERAL: Appears fatigued, in no acute distress HEAD: Normocephalic, atraumatic. EYES: PERRLA and EOMI. ENT: Nares clear, no rhinorrhea or epistaxis. Mucous membranes dry NECK: Supple. CHEST: Clear to auscultation. No respiratory distress. HEART: Regular rate and rhythm. No murmur heard. Normal peripheral pulses. ABDOMEN: Soft, diffuse tenderness, no guarding or rebound EXTREMITIES: Normal range of motion. No edema. SKIN: Warm, dry, no rash. NEURO: No focal deficits. Alert and oriented x3. PSYCH: Normal mood and affect. Course Vital Signs Vital signs: Vital Signs Temperature 97.8 F 07/10/22 13:37 Pulse Rate 95 07/10/22 13:37 Respiratory Rate 16 07/10/22 13:37 Blood Pressure 106/65 07/10/22 13:37 Pulse Oximetry 99 07/10/22 13:37 Oxygen Delivery Room Air 07/10/22 13:37 Temperature 98 F 07/13/22 14:50 Pulse Rate 77 07/13/22 14:50 Respiratory Rate 18 07/13/22 14:50 Blood Pressure 151/85 H 07/13/22 14:50 Pulse Oximetry 98 07/13/22 14:50 Oxygen Deliver
[2022-07-10] MEDS: ONDANSETRON INJ 4 MG/2 ML VIAL IV PUSH ×2 (15:19→20:39)
[2022-07-10] MEDS: SODIUM CHLORIDE 0.9% IV 1,000 ML 999 ML IV CONT (15:22)
[2022-07-10 15:59] LABS: Appearance Urine Clear (Clear); Bilirubin Urine 1+ (Negative); Blood Urine Negative (Negative); Color Urine Yellow (Yellow); Glucose Urine UA Negative (Negative); Ketones Urine Trace mg/dL (Negative); Leukocyte Esterase Ur Negative LEU/UL (Negative); Nitrate Urine Negative (Negative); Protein Urine 1+ mg/dL (Negative); Specific Grav Ur >= 1.030 (1.001-1.035); Urobilinogen Urine 0.2 mg/dL (<2.0)
[2022-07-10 16:01] LABS: Squamous Epithelial Cell Urine Rare /hpf (Few); WBC Urine 0-3 /hpf
[2022-07-10 16:03] LABS: Add Urine Microscopic? YES
[2022-07-10 16:08] LABS: Lactic Acid Reflex 1.1 mmol/L (0.7-2.0)
[2022-07-10 16:10] LABS: Lipase 258 U/L (23-300); Magnesium 2.1 mg/dL (1.6-2.3); Uric Acid 15.5 mg/dL (3.5-8.5)
[2022-07-10 16:34] LABS: Influenza A QL RT-PCR Negative (Negative); Influenza B QL RT-PCR Negative (Negative); RSV RNA, RT-PCR Negative (Negative); SARS-CoV-2 RNA PCR Negative
[2022-07-10] MEDS: fentaNYL CITRATE INJ (*CRX) 100 MCG/2 ML VIAL IV PUSH (16:50)
[2022-07-10 17:29] VITALS: BP 104/59; PULSE 59; RESP 20; O2SAT 98
--- NOTE | 2022-07-10 17:30 | PM.IMHP ---
H&P: HPI History of Present Illness Date/Time: 07/10/22 17:30 Chief Complaint: Nausea, vomiting, diarrhea. Narrative: This is a 66-year-old male with hypertension, hyperlipidemia, gout, and history of TIA who presented to the emergency department via EMS from home for evaluation of nausea, vomiting, and diarrhea. Patient provides the following history. He has not felt well since with generalized abdominal discomfort, nausea, vomiting, and diarrhea. He estimates vomiting 10 times on ; that has since subsided and he has been able to hold down some liquid and chicken noodle soup. He has also had multiple episodes of nonbloody diarrhea each day. He has also noticed bloating, belching, and he has had hiccups. His abdomen has been aching in the periumbilical and epigastric regions which he initially attributed to vomiting and dry heaves. Each day he feels more and more weak and he feels dehydrated, remarking that he has only urinated twice since and only in small quantities. He has had chills but no known fever. He has not had any sick contacts and he denies recent travel an antibiotic use. He has not had any recent change in medications. He has had some hernia repairs in the past and does not think that his pain is at the site of those prior repairs. Also of note he reports exquisite pain in both great toes similar to previous gout attacks. Vital signs were stable on arrival to the emergency department, blood pressures have been running at the low end of normal. Pertinent labs include a WBC count of 6.2, hemoglobin 15.5, hematocrit 45.8, 32 neutrophils and 23 bands on manual differential, sodium 134, potassium 3.6, chloride 103, carbon dioxide 18, BUN 86, creatinine 5.30, lactic acid 1.1, uric acid 15.5. CT of the abdomen/pelvis showed small-bowel obstruction with transition point at the umbilical hernia. Dr. Ulrich was consulted by the ED physician he will see the patient in consultation. Review of Systems Review of Systems: Twelve systems were reviewed and are negative except for as per HPI. [facility] Past Medical History Medical History (Updated 07/10/22 @ 23:11 by Tita Lopez PA-C) Chronic obstructive pulmonary disease Gastroesophageal reflux disease Gout Hyperlipidemia Hypertension Obstructive sleep apnea on CPAP Transient ischemic attack (2016) Surgical History Surgical History (Updated 07/10/22 @ 23:09 by Tita Lopez PA-C) History of tonsillectomy History of umbilical hernia repair Dr. Norton History of ventral hernia repair (01/2022) Status post excision of lipoma Status post transsphenoidal pituitary resection Family History Family History Father Heart disease Mother Diabetes mellitus Breast cancer Cerebrovascular accident Social History Social History (Updated 07/10/22 @ 23:04 by Tita Lopez PA-C) Social History: Surrogate medical decision maker: Dolores Arce, friend. Code status: Full code. Smoking packs per day: 0.5 Smoking cigarettes per day: 10.0 Years smoked: 5 Smoking pack-years: 2.50 Smoking status: Former smoker Alcohol intake: current Drinks per week: 8 Substance use: never Lack of Transportation: No Lack of Food: Never True Current Housing: I Have Housing Concerned About Future Housing: No Difficulty Paying Gas/Electric Bills: No Difficulty Paying for Meds: No Currently Unemployed: No Education: Bachelor's Degree Difficulty w/ Childcare or Family Care: No Living arrangements: alone Additional living arrangements comments: The patient lives in his own home in [place]. 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 Spiritual care concerns: No Meds Home Medications and Allergies Home Medications Medication Instructions Recorded Confirmed Type clopi
--- NOTE | 2022-07-10 19:23 | ADMGEN ---
This patient, Niels Persaud, was admitted to Medical Room 260-01. Patient/family oriented to hospital policies and general routines including ID bracelet, bed and alarms, visiting hours, pain management, procedures, bathroom and other care routines, personal items, smoking policy, room service/diet, and visiting hours. Information on how to activate the Rapid Response Team has been discussed. Patient/Family are encouraged to report perceived risks to care and to ask questions if they do not understand what they are told or what they should do.
[2022-07-10 20:10] VITALS: BMI 37.3
[2022-07-10 20:11] VITALS: BP 101/54; PULSE 59; RESP 20; TEMP 36.2; O2SAT 100
[2022-07-10] MEDS: SODIUM CHLORIDE 0.9% IV 1,000 ML 100 ML IV CONT (20:39)
[2022-07-10 21:25] LABS: Anion Gap 12 mmol/L (8-16); Blood Urea Nitrogen 86 mg/dL (9-20); Calcium 8.7 mg/dL (8.4-10.2); Carbon Dioxide 16 mmol/L (22-30); Chloride 104 mmol/L (98-107); Estimated CRCL calculation 18 ml/min; Estimated Glomerular Filt Rate 11; Glucose 83 mg/dL (65-110); Potassium 3.5 mmol/L (3.4-5.0); Sodium 132 mmol/L (137-145)
[2022-07-10 21:42] LABS: CRP 14.1 mg/dL (<1.0); Creatine Kinase 82 U/L (55-170)
[2022-07-10 22:16] LABS: Erythrocyte Sedimentation Rate 22 mm/hr (0-20)
--- NOTE | 2022-07-10 23:38 | PC.NURSE ---
Pt has history of nasal cavity surgery, Tita Lopez notified and ordered to continue with NG placement.
[2022-07-10] MEDS: HYDROmorphone HCL INJ (*CRX) 1 MG/ML SYR 0.5 MG IV PUSH (23:53)
[2022-07-10] MEDS: LACTATED RINGERS 1,000 ML 150 ML IV CONT (23:56)
[2022-07-11 00:51] LABS: Creatinine Urine 148.9 mg/dL; Total Protein Urine Random 25 mg/dL; Ur Ttl Prot Creatinine Ratio 0.17 mg/mg (0-0.20)
[2022-07-11 01:00] LABS: Potassium Urine Random 10.5 meq/L; Sodium Urine Random 17 meq/L
[2022-07-11 01:27] LABS: Eosinophil Urine None Seen % (None Seen); Urine Eos QC 2nd Tech Confirmed
[2022-07-11 03:24] VITALS: BP 110/58; PULSE 66; RESP 20; TEMP 35.9; O2SAT 97
[2022-07-11 05:14] LABS: Hematocrit 42.1 % (42.0-52.0); Hemoglobin 14.2 g/dL (14.0-18.0); Mean Corpuscular HGB Conc 33.7 g/dl (32-36); Mean Corpuscular Hemoglobin 30.2 pg (26-34); Mean Corpuscular Volume 89.6 fl (80-100); Mean Platelet Volume 9.9 fl (7.4-10.4); Platelet Count Result 258 k/mm3 (150-375); Red Cell Distribution Width 13.6 % (11.5-14.5); White Blood Count 5.3 K/mm3 (4.5-10.0)
[2022-07-11 05:21] LABS: Alanine Aminotransferase 31 U/L (6-50); Albumin Level 3.7 g/dL (3.5-5.1); Alkaline Phosphatase 97 U/L (38-126); Anion Gap 11 mmol/L (8-16); Aspartate Amino Transferase 22 U/L (17-59); Bilirubin,Total 0.7 mg/dL (0.2-1.3); Blood Urea Nitrogen 83 mg/dL (9-20); Calcium 8.6 mg/dL (8.4-10.2); Carbon Dioxide 18 mmol/L (22-30); Chloride 105 mmol/L (98-107); Estimated CRCL calculation 23 ml/min; Estimated Glomerular Filt Rate 14; Glucose 84 mg/dL (65-110); Phosphorus 4.3 mg/dL (2.5-4.5); Potassium 3.6 mmol/L (3.4-5.0); Sodium 134 mmol/L (137-145); Uric Acid 15.5 mg/dL (3.5-8.5)
[2022-07-11 06:25] LABS: Band Neutrophils Percent 16 % (0-6); Neutrophils Absolute Manual 3.23 K/mm3 (1.3-6.7); Neutrophils Percent Manual 45 % (46-73); Total Cells Counted 100
[2022-07-11 06:26] LABS: Basophils Absolute Manual 0.05 K/mm3 (0.0-0.1); Basophils Percent Manual 1 % (0-1); Eosinophils Absolute Manual 0.21 K/mm3 (0.02-0.5); Eosinophils Percent Manual 4 % (0-4); Lymphocytes Absolute Manual 1.16 K/mm3 (1.1-4.5); Lymphocytes Percent Manual 22 % (18-44); Monocytes Absolute Manual 0.63 K/mm3 (0.1-0.90); Monocytes Percent Manual 12 % (3-9); Platelet Estimate Adequate (Adequate); Schistocytes None Seen (NORMAL)
[2022-07-11] MEDS: LACTATED RINGERS 1,000 ML 150 ML IV CONT ×3 (06:34→20:00)
[2022-07-11] MEDS: ONDANSETRON INJ 4 MG/2 ML VIAL IV PUSH ×2 (11:30→22:57)
--- NOTE | 2022-07-11 13:45 | PM.CNGS ---
Assessment and Plan Assessment and plan (1) Small bowel obstruction: Code(s): K56.609 - Unspecified intestinal obstruction, unspecified as to partial versus complete obstruction Status: Acute Assessment and Plan: Patient presented with nausea, vomiting, and diarrhea for almost [address] scan suggests small bowel obstruction with transition point at the area of the previous ventral hernia repair. No evidence of a bulge or obvious hernia on exam or CT, this appears to be more of diastasis recti. There is a possibility of intra-abdominal adhesions from the previous surgery causing the transition point to be in this location, but he does not appear to have a recurrent ventral hernia. His abdominal pain and bloating has already improved since NG placement. Will continue with conservative measures with NG tube decompression, bowel rest, IV fluids, and analgesics as needed. Will plan to get a water-soluble small bowel follow through tomorrow morning to further evaluate. Discussed with the patient that this typically improves with conservative treatment, but if there is no improvement or concern for a high grade obstruction, then he could require exploratory surgery. (2) Acute kidney injury: Code(s): N17.9 - Acute kidney failure, unspecified Status: Acute Assessment and Plan: Could be due to a combination of volume depletion from vomiting/diarrhea, poor oral intake, and dehydration. Renal US unremarkable. Improving with IV fluid hydration. Continue medical management per Hospitalist. (3) Hyperuricemia: Code(s): E79.0 - Hyperuricemia without signs of inflammatory arthritis and tophaceous disease Status: Acute (4) Gout: Code(s): M10.9 - Gout, unspecified Status: Acute (5) Obstructive sleep apnea on CPAP: Code(s): G47.33 - Obstructive sleep apnea (adult) (pediatric); Z99.89 - Dependence on other enabling machines and devices Status: Acute (6) senior care (current) use of antithrombotics/antiplatelets: Code(s): Z79.02 - senior care (current) use of antithrombotics/antiplatelets Status: Chronic Assessment and Plan: Hold Plavix for now. (7) History of TIA (transient ischemic attack): Code(s): Z86.73 - Personal history of transient ischemic attack (TIA), and cerebral infarction without residual deficits Status: Chronic (8) Hypertension: Code(s): I10 - Essential (primary) hypertension Status: Acute Plan I have discussed the patient's case and plan of care with Dr. Ulrich. Thank you for allowing us to see the patient in consultation and we will continue to follow along with you. History of Present Illness Consult details Consult date: 07/11/22 Reason for consult: other (Small-bowel obstruction) Requesting physician: Cecelia Espinal MD Narrative: This is a 66-year-old man with history of hypertension, hyperlipidemia, gout, and history of TIA, who presented to the emergency department with complaints vomiting, diarrhea, and abdominal pain. He had an acute onset of vomiting and diarrhea overnight about 1 week ago. His vomiting persisted for the next 4 days and he was unable to keep down any liquids. He developed epigastric and periumbilical abdominal pain and bloating over the past few days that he initially attributed to vomiting. He has had a hard time keeping anything other than liquids and some chicken noodle soup down. He has not been urinating regularly and only urinated 2 times for the 48 hours prior to presenting to the ER. He continued to have diarrhea up until 2 nights ago was his last episode diarrhea. He also reports chills no known fever. He has become progressively weak and felt dehydrated. The night before last, he additionally woke up in the night with severe pain in both great toes similar to previous gout attacks. He ultimately was brought into the ER yesterday for further evaluation via EMS. Labs showed a white blood
--- NOTE | 2022-07-11 14:03 | PM.CNNEP ---
Assessment and Plan Assessment and plan (1) Acute kidney injury: Code(s): N17.9 - Acute kidney failure, unspecified Status: Acute Assessment and Plan: likely due to a combination of dehydration/volume depletion from GI loss (vomiting/diarrhea), relative hypotension and use of ARB therapy prior to admission renal ultrasound without obstruction urine studies pending holding ARB renal function has improved with current interventions follow trend of repeat labs and UOP (2) Small bowel obstruction: Code(s): K56.609 - Unspecified intestinal obstruction, unspecified as to partial versus complete obstruction Status: Acute Assessment and Plan: as evidence of symptoms as well as imaging on admission CT scan with small bowel obstruction with transition point at the area of the previous ventral hernia repair s/p NG tube placement with some improvement in symptoms conitnue pain control and IVF Surgery following (3) Hypertension: Code(s): I10 - Essential (primary) hypertension Status: Chronic Assessment and Plan: well controlled if not on the lower end of normal holding BP medications follow trend of hemodynamics (4) Metabolic acidosis: Code(s): E87.20 - Acidosis, unspecified Status: Acute Assessment and Plan: due to a combination of MELISSA and GI losses follow trend for now if worsens, consider adding bicarb to IVFs Will continue to follow. History of Present Illness Reason for Consult Consult date: 07/11/22 Reason for consult: acute renal failure Chief Complaint Chief complaint: MELISSA History of Present Illness Narrative: The patient is a 66-year-old male with a past medical history as outlined below who presented to [facility] Emergency room for further evaluation of nausea, vomiting, and diarrhea. The patient has not been doing well since last . It was around that time when he started having issues with generalized abdominal discomfort in association with nausea, vomiting, and diarrhea. He reports episodes of vomiting at least 10 times on that day and eventually it seemed to subside on its own. Unfortunately, this symptom was further complicated by multiple episodes of diarrhea in association with bloating, belching, and hiccups. He knows the abdominal pain was localized to his periumbilical / epigastric area with no associated radiation. In the following days with these symptoms he states that he has been progressively getting weaker and weaker and has not been able to eat or drink anything due to the symptoms and he has noted a decline in his urine output as well. He reports subjective chills but no overt fevers and denies any recent new medication changes with regard to antibiotics or food or sick contacts. Given the persistence of the symptoms, he presented to the ER for further assessment. Workup and evaluation in the emergency room demonstrated the patient to be relatively stable with regard to hemodynamics although his blood pressure was on the lower end of normal and routine blood test demonstrated normal white blood cell count but there was a left shift present. His chemistry was significant for a mild metabolic acidosis in association with Jung id renal dysfunction with a BUN of 86 and a creatinine of 5.3. His lactic acid was normal but his uric acid level was quite elevated 15.5. He subsequent underwent a CT scan of his abdomen pelvis which demonstrated a small bowel obstruction. General surgery was consulted with regard to the small bowel obstruction and an NG tube was placed in attempt to provide decompression and improvement in his symptoms. IV fluids were initiated and he was subsequently admitted to the hospital for further evaluation and therapy. Renal consultation was requested due to his acute kidney injury/ acute renal failure. From review his records, the patient has normal renal function at baseline
[2022-07-11] MEDS: BENZOCAINE/MENTHOL (*BKC) 18 EA LOZENGE 1 LOZENGE PO (14:26)
--- NOTE | 2022-07-11 15:38 | PM.IMPN ---
Progress Note: A&P Assessment and Plan (1) Small bowel obstruction: Code(s): K56.609 - Unspecified intestinal obstruction, unspecified as to partial versus complete obstruction Status: Acute Assessment and Plan: Presented with abdominal pain, nausea, and vomiting. CT on presentation showed small-bowel obstruction with transition point and umbilical hernia continue with NG decompression appreciate general surgery recommendations NPO diet IV fluids while NPO analgesics and antiemetics available as needed plan for small-bowel follow-through tomorrow to assess obstruction (2) Acute kidney injury: Code(s): N17.9 - Acute kidney failure, unspecified Status: Acute Assessment and Plan: Acute kidney injury is likely due to a combination of hypovolemia from dehydration given poor oral intake, vomiting, and diarrhea in addition to lower blood pressures from the same. may be worsened due to hyperuricemia, however no crystals noted in urine creatinine has improved from presentation (5.9) down to 4.2 today continue with IV fluid rehydration renal ultrasound unremarkable appreciate nephrology recommendations continue to trend renal function (3) Hyperuricemia: Code(s): E79.0 - Hyperuricemia without signs of inflammatory arthritis and tophaceous disease Status: Acute Assessment and Plan: uric acid is elevated at 15.5 and patient endorses right great toe pain consistent with prior gout flare not a candidate for colchicine given his renal function steroids considered, however patient requested to defer given improvement in pain may need to consider starting uric acid lowering therapy as an outpatient following resolution of acute illness and improvement in renal function (4) Gout: Code(s): M10.9 - Gout, unspecified Status: Acute Assessment and Plan: see above (5) Obstructive sleep apnea on CPAP: Code(s): G47.33 - Obstructive sleep apnea (adult) (pediatric); Z99.89 - Dependence on other enabling machines and devices Status: Chronic Assessment and Plan: CPAP held while NG tube is in place (6) Hyperlipidemia: Code(s): E78.5 - Hyperlipidemia, unspecified Status: Chronic Assessment and Plan: LFTs reviewed and stable to continue atorvastatin when no longer NPO (7) Gastroesophageal reflux disease: Code(s): K21.9 - Gastro-esophageal reflux disease without esophagitis Status: Chronic Assessment and Plan: IV pantoprazole while NPO (8) Chronic obstructive pulmonary disease: Code(s): J44.9 - Chronic obstructive pulmonary disease, unspecified Status: Chronic Assessment and Plan: not in acute exacerbation. Albuterol as needed Subjective Date/time seen: 07/11/22 15:38 Interval history: date of service: 07/11/2022 Niels Persaud is 66-year-old male with a history of hypertension, hyperlipidemia, gout, COPD, JON on CPAP, GERD, and TIA who is seen in follow-up for small bowel obstruction. Patient reports that he feels poorly today. He is bothered by his NG tube and has a dry, scratchy throat. He feels dehydrated and has very poor energy. He does endorse mid abdominal pain that does improve with analgesics. He states that the pain medications are helping to decrease his stress and allow him to have some rest. He is not passing flatus. No bowel movements. Denies fever, chills, nausea, or vomiting. Feels unsteady on his feet. Denies dizziness or lightheadedness. No urinary symptoms. Endorses pain in his right great toe, consistent with previous gout flares. patient states that his symptoms have improved. Did discuss considering steroids for flare as he is not a candidate for colchicine, however he states that at this time he is feeling improved and does not feel that any treatment is required. Review of Systems Review of Systems:
[2022-07-11] MEDS: PANTOPRAZOLE SODIUM IV 40 MG VIAL IV PUSH (17:33)
[2022-07-11 18:36] VITALS: BP 151/75; PULSE 74; RESP 16; TEMP 36.2; O2SAT 97
[2022-07-11 18:37] VITALS: BP 147/78; BP 151/75; PULSE 74; RESP 16; TEMP 36.2; O2SAT 97
[2022-07-11 18:38] VITALS: BP 142/68
[2022-07-11 22:00] VITALS: BP 142/69; PULSE 78; RESP 18; TEMP 36.7; O2SAT 98
[2022-07-12] MEDS: LACTATED RINGERS 1,000 ML 150 ML IV CONT ×3 (02:41→20:23)
[2022-07-12 05:28] VITALS: BP 150/73; PULSE 79; RESP 18; TEMP 36.5; O2SAT 98
[2022-07-12 06:09] LABS: Hematocrit 41.5 % (42.0-52.0); Mean Corpuscular HGB Conc 33.7 g/dl (32-36); Mean Corpuscular Hemoglobin 29.3 pg (26-34); Mean Corpuscular Volume 86.8 fl (80-100); Mean Platelet Volume 9.9 fl (7.4-10.4); Platelet Count Result 254 k/mm3 (150-375); Red Blood Count 4.78 M/mm3 (4.6-6.20); Red Cell Distribution Width 13.5 % (11.5-14.5); White Blood Count 8.1 K/mm3 (4.5-10.0)
[2022-07-12 06:23] LABS: Anion Gap 13 mmol/L (8-16); Blood Urea Nitrogen 59 mg/dL (9-20); Calcium 8.9 mg/dL (8.4-10.2); Carbon Dioxide 18 mmol/L (22-30); Chloride 110 mmol/L (98-107); Estimated CRCL calculation 38 ml/min; Estimated Glomerular Filt Rate 26; Glucose 80 mg/dL (65-110); Potassium 3.4 mmol/L (3.4-5.0); Sodium 141 mmol/L (137-145)
[2022-07-12] MEDS: PANTOPRAZOLE SODIUM IV 40 MG VIAL IV PUSH (07:53)
--- NOTE | 2022-07-12 13:15 | P.PNIM_ITS ---
Progress Note: A&P Assessment and Plan (1) Small bowel obstruction: Code(s): K56.609 - Unspecified intestinal obstruction, unspecified as to partial versus complete obstruction Status: Acute Assessment and Plan: * Presented with abdominal pain, nausea, and vomiting. * CT on presentation showed small-bowel obstruction with transition point and umbilical hernia * continue with NG decompression * appreciate general surgery recommendations * NPO diet * IV fluids while NPO * analgesics and antiemetics available as needed * small-bowel follow-through indicated continuing bowel obstruction (2) Acute kidney injury: Code(s): N17.9 - Acute kidney failure, unspecified Status: Acute Assessment and Plan: * BUN/Cr at admission 86/5.30, currently trending down at 59/2.50 * likely related to dehydration from nausea, vomiting, diarrhea, and poor intake * Baseline appears to be a Cr of 1.0-1.2 * continue with IV fluid rehydration * renal ultrasound unremarkable * FENa score is 0.5% indicating failure is pre-renal * appreciate nephrology recommendations * continue to trend renal function (3) Gout: Code(s): M10.9 - Gout, unspecified Status: Acute Assessment and Plan: * Uric acid is elevated at 15.5 with complaints of right great toe pain * Not a candidate at this time for PO therapy with new renal failure * steroids considered, however patient requested to defer given improvement in pain * Consider Allopurinol with resolution of renal failure * Uric acid level in the am * Try one dose of steroids IV to see if it would help (4) Obstructive sleep apnea on CPAP: Code(s): G47.33 - Obstructive sleep apnea (adult) (pediatric); Z99.89 - Dependence on other enabling machines and devices Status: Chronic Assessment and Plan: * CPAP held while NG tube is in place (5) Hyperlipidemia: Code(s): E78.5 - Hyperlipidemia, unspecified Status: Chronic Assessment and Plan: * LFTs reviewed and stable to continue atorvastatin when no longer NPO (6) Gastroesophageal reflux disease: Code(s): K21.9 - Gastro-esophageal reflux disease without esophagitis Status: Chronic Assessment and Plan: * IV pantoprazole while NPO (7) Chronic obstructive pulmonary disease: Code(s): J44.9 - Chronic obstructive pulmonary disease, unspecified Status: Chronic Assessment and Plan: * not in acute exacerbation. Albuterol as needed Time Spent With Patient Time: 52 minutes Time with patient: Greater than 35 minutes Subjective Date/time seen: 07/12/221314 Interval history: 07/12/221314 Patient seems a little frustrated. Patient is wanting to eat however he is stating that he is not having any gas. He did state that he was having little gas but nothing substantial. NG tube was hooked up and it did drain about 100 mL. He denies any nausea, vomiting. He also denies any further abdominal distension or pain. He did state that he had been his toes better and he is afraid to take steroids as he is afraid is going to affect everything else. He is also wanting some Tylenol. He denies any chest pain or shortness of breath. He is asking for Tylenol. Talked to him about one dose of steroids to see if it would help with the toe pain. 07/11/2022 Niels Persaud is 66-year-old male with a history of hypertension, hyp
--- NOTE | 2022-07-12 13:15 | PM.IMPN ---
Progress Note: A&P Assessment and Plan (1) Small bowel obstruction: Code(s): K56.609 - Unspecified intestinal obstruction, unspecified as to partial versus complete obstruction Status: Acute Assessment and Plan: Presented with abdominal pain, nausea, and vomiting. CT on presentation showed small-bowel obstruction with transition point and umbilical hernia continue with NG decompression appreciate general surgery recommendations NPO diet IV fluids while NPO analgesics and antiemetics available as needed small-bowel follow-through indicated continuing bowel obstruction (2) Acute kidney injury: Code(s): N17.9 - Acute kidney failure, unspecified Status: Acute Assessment and Plan: BUN/Cr at admission 86/5.30, currently trending down at 59/2.50 likely related to dehydration from nausea, vomiting, diarrhea, and poor intake Baseline appears to be a Cr of 1.0-1.2 continue with IV fluid rehydration renal ultrasound unremarkable FENa score is 0.5% indicating failure is pre-renal appreciate nephrology recommendations continue to trend renal function (3) Gout: Code(s): M10.9 - Gout, unspecified Status: Acute Assessment and Plan: Uric acid is elevated at 15.5 with complaints of right great toe pain Not a candidate at this time for PO therapy with new renal failure steroids considered, however patient requested to defer given improvement in pain Consider Allopurinol with resolution of renal failure Uric acid level in the am Try one dose of steroids IV to see if it would help (4) Obstructive sleep apnea on CPAP: Code(s): G47.33 - Obstructive sleep apnea (adult) (pediatric); Z99.89 - Dependence on other enabling machines and devices Status: Chronic Assessment and Plan: CPAP held while NG tube is in place (5) Hyperlipidemia: Code(s): E78.5 - Hyperlipidemia, unspecified Status: Chronic Assessment and Plan: LFTs reviewed and stable to continue atorvastatin when no longer NPO (6) Gastroesophageal reflux disease: Code(s): K21.9 - Gastro-esophageal reflux disease without esophagitis Status: Chronic Assessment and Plan: IV pantoprazole while NPO (7) Chronic obstructive pulmonary disease: Code(s): J44.9 - Chronic obstructive pulmonary disease, unspecified Status: Chronic Assessment and Plan: not in acute exacerbation. Albuterol as needed Time Spent With Patient Time: 52 minutes Time with patient: Greater than 35 minutes Subjective Date/time seen: 07/12/221314 Interval history: 07/12/221314 Patient seems a little frustrated. Patient is wanting to eat however he is stating that he is not having any gas. He did state that he was having little gas but nothing substantial. NG tube was hooked up and it did drain about 100 mL. He denies any nausea, vomiting. He also denies any further abdominal distension or pain. He did state that he had been his toes better and he is afraid to take steroids as he is afraid is going to affect everything else. He is also wanting some Tylenol. He denies any chest pain or shortness of breath. He is asking for Tylenol. Talked to him about one dose of steroids to see if it would help with the toe pain. 07/11/2022 Niels Persaud is 66-year-old male with a history of hypertension, hyperlipidemia, gout, COPD, JON on CPAP, GERD, and TIA who is seen in follow-up for small bowel obstruction. Patient reports that he feels poorly today. He is bothered by his NG tube and has a dry, scratchy throat. He feels dehydrated and has very poor energy. He does endorse mid abdominal pain that does improve with analgesics. He states that the pain medications are helping to decrease his stress and allow him to have some rest. He is not passing flatus. No bowel movements. Denies fever, ch
[2022-07-12 13:57] VITALS: O2SAT 92
[2022-07-12 14:00] VITALS: BP 159/77; PULSE 69; RESP 16; TEMP 36.6; O2SAT 97
[2022-07-12 14:03] VITALS: BP 149/78
[2022-07-12 14:06] VITALS: BP 141/75
--- NOTE | 2022-07-12 14:10 | P.PNNP_ITS ---
Progress Note: A&P Assessment and Plan (1) Acute kidney injury: Code(s): N17.9 - Acute kidney failure, unspecified Status: Acute Assessment and Plan: * improving * likely due to a combination of dehydration/volume depletion from GI loss (vomiting/diarrhea), relative hypotension and use of ARB therapy prior to a dmission * evaluation to date: * renal ultrasound without obstruction * urine studies consistent with pre-renal azotemia * urine eosinophils negative * holding ARB for now * follow trend of repeat labs and UOP (2) Small bowel obstruction: Code(s): K56.609 - Unspecified intestinal obstruction, unspecified as to partial versus complete obstruction Status: Acute Assessment and Plan: * as evidence of symptoms as well as imaging on admission * CT scan with small bowel obstruction with transition point at the area of the previous ventral hernia repair * s/p NG tube placement with some improvement in symptoms * conitnue pain control and IVF * Surgery following (3) Hypertension: Code(s): I10 - Essential (primary) hypertension Status: Chronic Assessment and Plan: * improving * holding BP medications * follow trend of hemodynamics (4) Metabolic acidosis: Code(s): E87.20 - Acidosis, unspecified Status: Acute Assessment and Plan: * due to a combination of MELISSA and GI losses * follow trend for now * if worsens, consider adding bicarb to IVFs Will continue to follow. Subjective Date/time seen: 07/12/22 14:10 Overall, he states he feels better -- no further abdominal bloating, nausea, or vomiting with NG tube placement; he acutally states he is hungry; he has noted an increased in urine output as well with IVFs; no other acute issues voiced at this time. Exam Narrative: General: WD/WN male in NAD Heart: normal S1 and S2; no rub Lungs: clear to auscultation Abdomen: soft, mild TTP, nondistended, hypoactive bowel sounds Extremities: no cyanosis or clubbing; no edema Skin: warm and dry Objective Data Vital Signs Vital Signs: Vital Signs Temp Pulse Resp BP Pulse Ox O2 Del Method 07/12/22 14:06 141/75 H 07/12/22 14:03 149/78 H 07/12/22 14:00 97.9 F 69 16 97 07/12/22 14:00 159/77 H 07/12/22 13:57 92 Room Air 07/12/22 05:28 97.7 F 79 18 150/73 H 98 07/11/22 22:00 98.1 F 78 18 142/69 H 98 07/11/22 18:38 142/68 H 07/11/22 18:37 147/78 H 07/11/22 18:37 97.1 F L 74 16 151/75 H 97 07/11/22 18:36 97.1 F L 74 16 151/75 H 97 Intake/Output Intake/Output: Intake & Output 07/09/22 07/10/22 07/11/22 07/12/22 23:59 23:59 23:59 23:59 Intake Total 1400 3100 2000 Output Total 1800 1550 Balance 1400 1300 450 Meds/Results Medications: Active Medications Generic Name Dose Route Start Last Admin Trade Name Freq PRN Reason Stop Dose Admin Albuterol 2 puff 07/11/22 16:04 Albuterol Sulfate (*Sp) Aerosol 1 Puff INHALATION Q6HRT PRN Shortness Of Breath Benzocaine 1 lozenge 07/11/22 13:22 07/11/22 14:26 Benzocaine/Menthol (*Bkc) 18
--- NOTE | 2022-07-12 14:10 | PM.PNNEP ---
Progress Note: A&P Assessment and Plan (1) Acute kidney injury: Code(s): N17.9 - Acute kidney failure, unspecified Status: Acute Assessment and Plan: improving likely due to a combination of dehydration/volume depletion from GI loss (vomiting/diarrhea), relative hypotension and use of ARB therapy prior to admission evaluation to date: renal ultrasound without obstruction urine studies consistent with pre-renal azotemia urine eosinophils negative holding ARB for now follow trend of repeat labs and UOP (2) Small bowel obstruction: Code(s): K56.609 - Unspecified intestinal obstruction, unspecified as to partial versus complete obstruction Status: Acute Assessment and Plan: as evidence of symptoms as well as imaging on admission CT scan with small bowel obstruction with transition point at the area of the previous ventral hernia repair s/p NG tube placement with some improvement in symptoms conitnue pain control and IVF Surgery following (3) Hypertension: Code(s): I10 - Essential (primary) hypertension Status: Chronic Assessment and Plan: improving holding BP medications follow trend of hemodynamics (4) Metabolic acidosis: Code(s): E87.20 - Acidosis, unspecified Status: Acute Assessment and Plan: due to a combination of MELISSA and GI losses follow trend for now if worsens, consider adding bicarb to IVFs Will continue to follow. Subjective Date/time seen: 07/12/22 14:10 Overall, he states he feels better -- no further abdominal bloating, nausea, or vomiting with NG tube placement; he acutally states he is hungry; he has noted an increased in urine output as well with IVFs; no other acute issues voiced at this time. Exam Narrative: General: WD/WN male in NAD Heart: normal S1 and S2; no rub Lungs: clear to auscultation Abdomen: soft, mild TTP, nondistended, hypoactive bowel sounds Extremities: no cyanosis or clubbing; no edema Skin: warm and dry Objective Data Vital Signs Vital Signs: Vital Signs Temp Pulse Resp BP Pulse Ox O2 Del Method 07/12/22 14:06 141/75 H 07/12/22 14:03 149/78 H 07/12/22 14:00 97.9 F 69 16 97 07/12/22 14:00 159/77 H 07/12/22 13:57 92 Room Air 07/12/22 05:28 97.7 F 79 18 150/73 H 98 07/11/22 22:00 98.1 F 78 18 142/69 H 98 07/11/22 18:38 142/68 H 07/11/22 18:37 147/78 H 07/11/22 18:37 97.1 F L 74 16 151/75 H 97 07/11/22 18:36 97.1 F L 74 16 151/75 H 97 Intake/Output Intake/Output: Intake & Output 07/09/22 07/10/22 07/11/22 07/12/22 23:59 23:59 23:59 23:59 Intake Total 1400 3100 2000 Output Total 1800 1550 Balance 1400 1300 450 Meds/Results Medications: Active Medications Generic Name Dose Route Start Last Admin Trade Name Freq PRN Reason Stop Dose Admin Albuterol 2 puff 07/11/22 16:04 Albuterol Sulfate (*Sp) Aerosol 1 Puff INHALATION Q6HRT PRN Shortness Of Breath Benzocaine 1 lozenge 07/11/22 13:22 07/11/22 14:26 Benzocaine/Menthol (*Bkc) 18 Ea Lozenge PO 1 lozenge PRN PRN Administration Sore Throat Hydromorphone HCl 0.5 mg 07/10/22 22:55 07/10/22 23:53 Hydromorphone Hcl Inj (*Crx) 1 Mg/Ml Syr IV PUSH 0.5 mg Q3H PRN Administration Pain Rated 7-10 Lactated Ringer's 1,000 mls @ 150 mls/hr 07/10/22 23:25 07/12/22 12:28 Lr - Lactated Ringers Iv IV CONT 150 mls/hr .Q6H40M PEPITO Administration Acetaminophen 1,000 mg in 100 mls @ 400 mls/hr 07/12/22 14:19 Ofirmev 1,000 Mg Ivpb IVPB 07/13/22 14:18 Q6H PRN Pain Rated 4-6 Ondansetron HCl 4 mg 07/10/22 20:21 07/11/22 22:57 Ondansetron Inj 4 Mg/2 Ml Vial IV PUSH 4 mg Q6H PRN Administration Nausea And Vomiting Pantoprazole Sodium 40 mg 07/11/22 16:05 07/12/22 07:53 Pantoprazole Sodium Iv 40 Mg Vial IV PUSH 40 mg QAM PEPITO Administ
--- NOTE | 2022-07-12 14:30 | PM.PNGS ---
Progress Note: A&P Assessment and Plan (1) Small bowel obstruction: Code(s): K56.609 - Unspecified intestinal obstruction, unspecified as to partial versus complete obstruction Status: Acute Assessment and Plan: SBS today showed partial small bowel obstruction. Still some dilated small bowel with transit to more decompressed distal small bowel at 3 hours. He still has high NG output. Starting to pass some flatus this afternoon, but no bowel movement. Will continue NG tube decompression with bowel rest again today Repeat abdominal x-ray tomorrow morning. If he improves and starts having more bowel function, then could consider removing his NG tube and start slowly advancing his diet. Encouraged to try ambulating today (2) Acute kidney injury: Code(s): N17.9 - Acute kidney failure, unspecified Status: Acute Assessment and Plan: Continues to improve daily, creatinine down to 2.5 (3) Hyperuricemia: Code(s): E79.0 - Hyperuricemia without signs of inflammatory arthritis and tophaceous disease Status: Acute (4) Gout: Code(s): M10.9 - Gout, unspecified Status: Acute (5) Obstructive sleep apnea on CPAP: Code(s): G47.33 - Obstructive sleep apnea (adult) (pediatric); Z99.89 - Dependence on other enabling machines and devices Status: Chronic (6) care home (current) use of antithrombotics/antiplatelets: Code(s): Z79.02 - care home (current) use of antithrombotics/antiplatelets Status: Chronic Assessment and Plan: Plavix on hold (7) History of TIA (transient ischemic attack): Code(s): Z86.73 - Personal history of transient ischemic attack (TIA), and cerebral infarction without residual deficits Status: Chronic (8) Hypertension: Code(s): I10 - Essential (primary) hypertension Status: Acute Plan I have discussed the patient's case and plan of care with Dr. Ulrich. Subjective Subjective Date/Time Seen: 07/12/22 14:30 Patient reports: no new complaints, still having pain, voiding w/o difficulty (increased urination since admission), flatus, no bowel movement and nausea Interval history: Patient seen this afternoon following his SBS. He reports having some nausea after receiving the contrast but this has improved since being in the room and being hooked back to suction. No vomiting. He feels like he is still having epigastric abdominal pain that is not much better than yesterday. No bloating. Has only required a dose of Dilaudid once last night. He had a little flatus this afternoon but no BM. Review of Systems Review of Systems: ROS unchanged Exam Const: General: no acute distress Orientation/consciousness: patient oriented x3 GI: Inspection: other (less distended today) GI Palp: Yes Soft to palpation, Yes Tenderness to palpation present (GI) (epigastrum), No Guarding due to palpation present (GI), No Hernia present (no obvious bulge or hernia) and No Rebound tenderness present Auscultation: Hypoactive bowel sounds present (better today) Objective Data Vital Signs Vital Signs: Vital Signs - 24 hr 07/11/22 18:36 07/11/22 18:37 07/11/22 18:37 Temperature 97.1 F L 97.1 F L Pulse Rate 74 74 Respiratory Rate 16 16 Blood Pressure 151/75 H 151/75 H 147/78 H Pulse Oximetry 97 97 Oxygen Delivery 07/11/22 18:38 07/11/22 22:00 07/12/22 05:28 Temperature 98.1 F 97.7 F Pulse Rate 78 79 Respiratory Rate 18 18 Blood Pressure 142/68 H 142/69 H 150/73 H Pulse Oximetry 98 98 Oxygen Delivery 07/12/22 13:57 Temperature Pulse Rate Respiratory Rate Blood Pressure Pulse Oximetry 92 Oxygen Delivery Room Air Intake/Output Intake/Output: Intake & Output 07/09/22 07/10/22 07/11/22 07/12/22 23:59 23:59 23:59 23:59 Intake Total 1400 3100 2000 Output Total 1800 1550 Balance 1400 1300 450 Meds/Results Medications: Active Medications Generic Name Dose Route Start L
[2022-07-12] MEDS: methylPREDNISolone SOD SUCC 125 MG VIAL IV PUSH (15:47)
[2022-07-12 20:00] VITALS: BP 151/77; PULSE 84; RESP 18; TEMP 36.7; O2SAT 93
[2022-07-12] MEDS: BENZOCAINE/MENTHOL (*BKC) 18 EA LOZENGE 1 LOZENGE PO (20:50)
[2022-07-13] VITALS (9 sets, daily range): BP systolic 151–169; BP diastolic 77–88; PULSE 63–89; RESP 18–20; TEMP 36.6–36.7; O2SAT 94–98
[2022-07-13] MEDS: LACTATED RINGERS 1,000 ML 150 ML IV CONT ×3 (03:06→18:31)
[2022-07-13 05:14] LABS: Hematocrit 44.4 % (42.0-52.0); Hemoglobin 14.6 g/dL (14.0-18.0); Mean Corpuscular HGB Conc 32.9 g/dl (32-36); Mean Corpuscular Hemoglobin 29.4 pg (26-34); Mean Corpuscular Volume 89.3 fl (80-100); Platelet Count Result 295 k/mm3 (150-375); Red Blood Count 4.97 M/mm3 (4.6-6.20); Red Cell Distribution Width 14.1 % (11.5-14.5); White Blood Count 14.6 K/mm3 (4.5-10.0)
[2022-07-13 08:18] LABS: Band Neutrophils Percent 12 % (0-6); Lymphocytes Absolute Manual 1.46 K/mm3 (1.1-4.5); Metamyelocytes Percent 2 %; Monocytes Absolute Manual 0.43 K/mm3 (0.1-0.90); Monocytes Percent Manual 3 % (3-9); Myelocytes Percent 1 %; Neutrophils Absolute Manual 12.26 K/mm3 (1.3-6.7); Neutrophils Percent Manual 72 % (46-73); Platelet Estimate Adequate (Adequate); Schistocytes None Seen (NORMAL); Total Cells Counted 100
[2022-07-13 08:19] LABS: Atypical Lymphocytes Present; Burr Cells 1+ (NORMAL)
[2022-07-13] MEDS: PANTOPRAZOLE SODIUM IV 40 MG VIAL IV PUSH (09:01)
--- NOTE | 2022-07-13 10:30 | P.PNIM_ITS ---
Progress Note: A&P Assessment and Plan (1) Small bowel obstruction: Code(s): K56.609 - Unspecified intestinal obstruction, unspecified as to partial versus complete obstruction Status: Acute Assessment and Plan: * Presented with abdominal pain, nausea, and vomiting. * CT on presentation showed small-bowel obstruction with transition point and umbilical hernia * NG tube removed at this time * appreciate general surgery recommendations * Clear liquids * analgesics and antiemetics available as needed * small-bowel follow-through indicated continuing bowel obstruction (07/12/22) * KUB (07/13/22) nonspecific bowel gas pattern, contrast throughout large and small bowel (2) Acute kidney injury: Code(s): N17.9 - Acute kidney failure, unspecified Status: Acute Assessment and Plan: * BUN/Cr at admission 86/5.30, currently trending down at 53/2.00 * likely related to dehydration from nausea, vomiting, diarrhea, and poor intake * Baseline appears to be a Cr of 1.0-1.2 * continue with IV fluid rehydration * renal ultrasound unremarkable * FENa score is 0.5% indicating failure is pre-renal * appreciate nephrology recommendations * continue to trend renal function (3) Gout: Code(s): M10.9 - Gout, unspecified Status: Acute Assessment and Plan: * Uric acid is elevated at 15.5 with complaints of right great toe pain * Currently 17.9 * Not a candidate at this time for PO therapy with new renal failure * steroids considered, however patient requested to defer given improvement in pain * Consider Allopurinol with resolution of renal failure * Solumedrol 125mg IV once given 07/12/22 (4) Obstructive sleep apnea on CPAP: Code(s): G47.33 - Obstructive sleep apnea (adult) (pediatric); Z99.89 - Dependence on other enabling machines and devices Status: Chronic Assessment and Plan: * CPAP held while NG tube is in place (5) Hyperlipidemia: Code(s): E78.5 - Hyperlipidemia, unspecified Status: Chronic Assessment and Plan: * LFTs reviewed and stable to continue atorvastatin when no longer NPO (6) Gastroesophageal reflux disease: Code(s): K21.9 - Gastro-esophageal reflux disease without esophagitis Status: Chronic Assessment and Plan: * IV pantoprazole while NPO (7) Chronic obstructive pulmonary disease: Code(s): J44.9 - Chronic obstructive pulmonary disease, unspecified Status: Chronic Assessment and Plan: * not in acute exacerbation. Albuterol as needed Time Spent With Patient Time: 53 minutes Time with patient: Greater than 35 minutes Subjective Date/time seen: 07/13/22 1030 Interval history: 07/13/22 103 Patient is feeling better today. Patient did state that he was going to have a bowel movement and was able to walk to the bathroom. He denies any current chest pain, shortness a breath, nausea, vomiting, diarrhea or constipation. White count is slightly elevated however he did get a dose of steroids. NG tube was removed by General surgery. Diet was advanced 07/12/22 1315 Patient seems a little frustrated. Patient is wanting to eat however he is stating that he is not having any gas. He did state that he was having little gas but nothing substantial. NG tube was hooked up and it did drain about 100 mL. He denies any nausea, vomiting. He also denies any further abdo
--- NOTE | 2022-07-13 10:30 | PM.IMPN ---
Progress Note: A&P Assessment and Plan (1) Small bowel obstruction: Code(s): K56.609 - Unspecified intestinal obstruction, unspecified as to partial versus complete obstruction Status: Acute Assessment and Plan: Presented with abdominal pain, nausea, and vomiting. CT on presentation showed small-bowel obstruction with transition point and umbilical hernia NG tube removed at this time appreciate general surgery recommendations Clear liquids analgesics and antiemetics available as needed small-bowel follow-through indicated continuing bowel obstruction (07/12/22) KUB (07/13/22) nonspecific bowel gas pattern, contrast throughout large and small bowel (2) Acute kidney injury: Code(s): N17.9 - Acute kidney failure, unspecified Status: Acute Assessment and Plan: BUN/Cr at admission 86/5.30, currently trending down at 53/2.00 likely related to dehydration from nausea, vomiting, diarrhea, and poor intake Baseline appears to be a Cr of 1.0-1.2 continue with IV fluid rehydration renal ultrasound unremarkable FENa score is 0.5% indicating failure is pre-renal appreciate nephrology recommendations continue to trend renal function (3) Gout: Code(s): M10.9 - Gout, unspecified Status: Acute Assessment and Plan: Uric acid is elevated at 15.5 with complaints of right great toe pain Currently 17.9 Not a candidate at this time for PO therapy with new renal failure steroids considered, however patient requested to defer given improvement in pain Consider Allopurinol with resolution of renal failure Solumedrol 125mg IV once given 07/12/22 (4) Obstructive sleep apnea on CPAP: Code(s): G47.33 - Obstructive sleep apnea (adult) (pediatric); Z99.89 - Dependence on other enabling machines and devices Status: Chronic Assessment and Plan: CPAP held while NG tube is in place (5) Hyperlipidemia: Code(s): E78.5 - Hyperlipidemia, unspecified Status: Chronic Assessment and Plan: LFTs reviewed and stable to continue atorvastatin when no longer NPO (6) Gastroesophageal reflux disease: Code(s): K21.9 - Gastro-esophageal reflux disease without esophagitis Status: Chronic Assessment and Plan: IV pantoprazole while NPO (7) Chronic obstructive pulmonary disease: Code(s): J44.9 - Chronic obstructive pulmonary disease, unspecified Status: Chronic Assessment and Plan: not in acute exacerbation. Albuterol as needed Time Spent With Patient Time: 53 minutes Time with patient: Greater than 35 minutes Subjective Date/time seen: 07/13/22 1030 Interval history: 07/13/22 1030 Patient is feeling better today. Patient did state that he was going to have a bowel movement and was able to walk to the bathroom. He denies any current chest pain, shortness a breath, nausea, vomiting, diarrhea or constipation. White count is slightly elevated however he did get a dose of steroids. NG tube was removed by General surgery. Diet was advanced 07/12/22 1315 Patient seems a little frustrated. Patient is wanting to eat however he is stating that he is not having any gas. He did state that he was having little gas but nothing substantial. NG tube was hooked up and it did drain about 100 mL. He denies any nausea, vomiting. He also denies any further abdominal distension or pain. He did state that he had been his toes better and he is afraid to take steroids as he is afraid is going to affect everything else. He is also wanting some Tylenol. He denies any chest pain or shortness of breath. He is asking for Tylenol. Talked to him about one dose of steroids to see if it would help with the toe pain. 07/11/2022 Niels Persaud is 66-year-old male with a history of hypertension, hyperlipidemia, gout, COPD, JON on CPAP, GERD, and TIA who is seen
--- NOTE | 2022-07-13 11:46 | PM.PNGS ---
Progress Note: A&P Assessment and Plan (1) Small bowel obstruction: Code(s): K56.609 - Unspecified intestinal obstruction, unspecified as to partial versus complete obstruction Status: Acute Assessment and Plan: Showing signs of resolution. Will remove NG today, start clear liquids. Discussed plan with patient. If obstruction recurs, will need to consider laparoscopy or laparotomy. (2) Acute kidney injury: Code(s): N17.9 - Acute kidney failure, unspecified Status: Acute Assessment and Plan: improving with hydration Subjective Subjective Date/Time Seen: 07/13/22 11:46 Interval history: Bowels moving. No nausea or bloating. High NG output overnight but patient eating a lot of ice chips. No abdominal pain. Exam GI: Inspection: non-distended GI Palp: Yes Soft to palpation, No Tenderness to palpation present (GI) and No Guarding due to palpation present (GI) Auscultation: normal bowel sounds Objective Data Vital Signs Vital Signs: Vital Signs - 24 hr 07/12/22 13:57 07/12/22 14:00 07/12/22 14:00 Temperature 36.6 C Pulse Rate 69 Respiratory Rate 16 Blood Pressure 159/77 H Pulse Oximetry 92 97 Oxygen Delivery Room Air 07/12/22 14:03 07/12/22 14:06 07/12/22 20:00 Temperature 36.7 C Pulse Rate 84 Respiratory Rate 18 Blood Pressure 149/78 H 141/75 H 151/77 H Pulse Oximetry 93 Oxygen Delivery 07/13/22 05:23 07/13/22 10:24 07/13/22 10:27 Temperature 36.7 C Pulse Rate 77 66 68 Respiratory Rate 18 Blood Pressure 153/82 H 163/81 H 166/80 H Pulse Oximetry 94 Oxygen Delivery 07/13/22 10:30 07/13/22 08:50 Temperature Pulse Rate 89 Respiratory Rate Blood Pressure 155/88 H Pulse Oximetry Oxygen Delivery Room Air Intake/Output Intake/Output: Intake & Output 07/10/22 07/11/22 07/12/22 07/13/22 23:59 23:59 23:59 23:59 Intake Total 1400 3100 3500 2150 Output Total 1800 2450 Balance 1400 1300 1050 2150 Meds/Results Medications: Active Medications Generic Name Dose Route Start Last Admin Trade Name Freq PRN Reason Stop Dose Admin Albuterol 2 puff 07/11/22 16:04 Albuterol Sulfate (*Sp) Aerosol 1 Puff INHALATION Q6HRT PRN Shortness Of Breath Benzocaine 1 lozenge 07/11/22 13:22 07/12/22 20:50 Benzocaine/Menthol (*Bkc) 18 Ea Lozenge PO 1 lozenge PRN PRN Administration Sore Throat Hydromorphone HCl 0.5 mg 07/10/22 22:55 07/10/22 23:53 Hydromorphone Hcl Inj (*Crx) 1 Mg/Ml Syr IV PUSH 0.5 mg Q3H PRN Administration Pain Rated 7-10 Lactated Ringer's 1,000 mls @ 150 mls/hr 07/10/22 23:25 07/13/22 10:53 Lr - Lactated Ringers Iv IV CONT 150 mls/hr .Q6H40M PEPIOT Administration Acetaminophen 1,000 mg in 100 mls @ 400 mls/hr 07/12/22 14:19 07/12/22 23:50 Ofirmev 1,000 Mg Ivpb IVPB 07/13/22 14:18 Infused Q6H PRN Infusion Pain Rated 4-6 Ondansetron HCl 4 mg 07/10/22 20:21 07/11/22 22:57 Ondansetron Inj 4 Mg/2 Ml Vial IV PUSH 4 mg Q6H PRN Administration Nausea And Vomiting Pantoprazole Sodium 40 mg 07/11/22 16:05 07/13/22 09:01 Pantoprazole Sodium Iv 40 Mg Vial IV PUSH 40 mg QAM PEPITO Administration Radiology Results: ITS Impressions Chest X-Ray 07/10/22 14:20 Impression: 1: No acute cardiopulmonary disease. 2: Stable scarring/atelectasis right mid and lower lung compared with prior study. Abdomen/Pelvis CT 07/10/22 15:31 IMPRESSION: 1. Small bowel obstruction with transition point at the umbilical hernia. Renal Ultrasound 07/10/22 22:15 IMPRESSION: Unremarkable renal sonogram findings. Small Bowel X-Ray 07/12/22 12:44 IMPRESSION: 1. Partial small bowel obstruction. Abdomen X-Ray 07/13/22 06:34 Impression: NG tube in place, with nonspecific bowel gas pattern. There is contrast throughout large and small bowel. Labs Labs: Laboratory Results - last 24 hr 03
--- NOTE | 2022-07-13 12:49 | P.PNNP_ITS ---
Progress Note: A&P Assessment and Plan (1) Acute kidney injury: Code(s): N17.9 - Acute kidney failure, unspecified Status: Acute Assessment and Plan: * improving * likely due to a combination of dehydration/volume depletion from GI loss (vomiting/diarrhea), relative hypotension and use of ARB therapy prior to a dmission * evaluation to date: * renal ultrasound without obstruction * urine studies consistent with pre-renal azotemia * urine eosinophils negative * holding ARB for now * follow trend of repeat labs and UOP (2) Small bowel obstruction: Code(s): K56.609 - Unspecified intestinal obstruction, unspecified as to partial versus complete obstruction Status: Acute Assessment and Plan: * as evidence of symptoms as well as imaging on admission * CT scan with small bowel obstruction with transition point at the area of the previous ventral hernia repair * s/p NG tube placement on admission; NG tube out currently * continue pain control and IVF * Surgery following (3) Hypertension: Code(s): I10 - Essential (primary) hypertension Status: Chronic Assessment and Plan: * improving/rising * holding BP medication currently * follow trend of hemodynamics * probably ok to resume metoprolol (4) Metabolic acidosis: Code(s): E87.20 - Acidosis, unspecified Status: Acute Assessment and Plan: * due to a combination of MELISSA and GI losses * follow trend for now - little worse * suspect will improve as renal function does * if worsens, consider starting oral bicarb Will continue to follow. Subjective Date/time seen: 07/13/22 12:49 Appears to be doing much better; NG tube removed and diet being advanced; renal function continues to improve as noted by AM labs; no other acute issues/events overnight or earlier this AM. Exam Narrative: General: WD/WN male in NAD Heart: normal S1 and S2; no rub Lungs: clear to auscultation Abdomen: soft, mild TTP, nondistended, hypoactive bowel sounds Extremities: no cyanosis or clubbing; no edema Skin: warm and dry Objective Data Vital Signs Vital Signs: Vital Signs Temp Pulse Resp BP Pulse Ox O2 Del Method 07/13/22 12:30 98 F 77 18 151/85 H 98 07/13/22 08:50 Room Air 07/13/22 10:30 89 155/88 H 07/13/22 10:27 68 166/80 H 07/13/22 10:24 66 163/81 H 07/13/22 05:23 98.0 F 77 18 153/82 H 94 07/12/22 20:00 98.0 F 84 18 151/77 H 93 Intake/Output Intake/Output: Intake & Output 07/10/22 07/11/22 07/12/22 07/13/22 23:59 23:59 23:59 23:59 Intake Total 1400 3100 3500 2842 Output Total 1800 2450 Balance 1400 1300 1050 2842 Meds/Results Medications: Active Medications Generic Name Dose Route Start Last Admin Trade Name Freq PRN Reason Stop Dose Admin Albuterol 2 puff 07/11/22 16:04 Albuterol Sulfate (*Sp) Aerosol 1 Puff INHALATION Q6HRT PRN Shortness Of Breath Benzocaine 1 lozenge 07/11/22 13:22 07/12/22 20:50 Benzocaine/Menthol (*Bkc) 18 Ea Lozenge PO 1 lozenge PRN PRN Administration Sore Throat Hydromorphone HCl
--- NOTE | 2022-07-13 12:49 | PM.PNNEP ---
Progress Note: A&P Assessment and Plan (1) Acute kidney injury: Code(s): N17.9 - Acute kidney failure, unspecified Status: Acute Assessment and Plan: improving likely due to a combination of dehydration/volume depletion from GI loss (vomiting/diarrhea), relative hypotension and use of ARB therapy prior to admission evaluation to date: renal ultrasound without obstruction urine studies consistent with pre-renal azotemia urine eosinophils negative holding ARB for now follow trend of repeat labs and UOP (2) Small bowel obstruction: Code(s): K56.609 - Unspecified intestinal obstruction, unspecified as to partial versus complete obstruction Status: Acute Assessment and Plan: as evidence of symptoms as well as imaging on admission CT scan with small bowel obstruction with transition point at the area of the previous ventral hernia repair s/p NG tube placement on admission; NG tube out currently continue pain control and IVF Surgery following (3) Hypertension: Code(s): I10 - Essential (primary) hypertension Status: Chronic Assessment and Plan: improving/rising holding BP medication currently follow trend of hemodynamics probably ok to resume metoprolol (4) Metabolic acidosis: Code(s): E87.20 - Acidosis, unspecified Status: Acute Assessment and Plan: due to a combination of MELISSA and GI losses follow trend for now - little worse suspect will improve as renal function does if worsens, consider starting oral bicarb Will continue to follow. Subjective Date/time seen: 07/13/22 12:49 Appears to be doing much better; NG tube removed and diet being advanced; renal function continues to improve as noted by AM labs; no other acute issues/events overnight or earlier this AM. Exam Narrative: General: WD/WN male in NAD Heart: normal S1 and S2; no rub Lungs: clear to auscultation Abdomen: soft, mild TTP, nondistended, hypoactive bowel sounds Extremities: no cyanosis or clubbing; no edema Skin: warm and dry Objective Data Vital Signs Vital Signs: Vital Signs Temp Pulse Resp BP Pulse Ox O2 Del Method 07/13/22 12:30 98 F 77 18 151/85 H 98 07/13/22 08:50 Room Air 07/13/22 10:30 89 155/88 H 07/13/22 10:27 68 166/80 H 07/13/22 10:24 66 163/81 H 07/13/22 05:23 98.0 F 77 18 153/82 H 94 07/12/22 20:00 98.0 F 84 18 151/77 H 93 Intake/Output Intake/Output: Intake & Output 07/10/22 07/11/22 07/12/22 07/13/22 23:59 23:59 23:59 23:59 Intake Total 1400 3100 3500 2842 Output Total 1800 2450 Balance 1400 1300 1050 2842 Meds/Results Medications: Active Medications Generic Name Dose Route Start Last Admin Trade Name Freq PRN Reason Stop Dose Admin Albuterol 2 puff 07/11/22 16:04 Albuterol Sulfate (*Sp) Aerosol 1 Puff INHALATION Q6HRT PRN Shortness Of Breath Benzocaine 1 lozenge 07/11/22 13:22 07/12/22 20:50 Benzocaine/Menthol (*Bkc) 18 Ea Lozenge PO 1 lozenge PRN PRN Administration Sore Throat Hydromorphone HCl 0.5 mg 07/10/22 22:55 07/10/22 23:53 Hydromorphone Hcl Inj (*Crx) 1 Mg/Ml Syr IV PUSH 0.5 mg Q3H PRN Administration Pain Rated 7-10 Lactated Ringer's 1,000 mls @ 150 mls/hr 07/10/22 23:25 07/13/22 10:53 Lr - Lactated Ringers Iv IV CONT 150 mls/hr .Q6H40M PEPITO Administration Ondansetron HCl 4 mg 07/10/22 20:21 07/11/22 22:57 Ondansetron Inj 4 Mg/2 Ml Vial IV PUSH 4 mg Q6H PRN Administration Nausea And Vomiting Pantoprazole Sodium 40 mg 07/11/22 16:05 07/13/22 09:01 Pantoprazole Sodium Iv 40 Mg Vial IV PUSH 40 mg QAM PEPITO Administration Radiology Results: ITS Impressions Chest X-Ray 07/10/22 14:20 Impression: 1: No acute cardiopulmonary disease. 2: Stable scarring/atelectasis right mid and lower lung compared with prior study. Abdomen/Pe
[2022-07-13 14:06] LABS: Alanine Aminotransferase 37 U/L (6-50); Albumin Level 3.9 g/dL (3.5-5.1); Alkaline Phosphatase 104 U/L (38-126); Anion Gap 16 mmol/L (8-16); Aspartate Amino Transferase 41 U/L (17-59); Blood Urea Nitrogen 53 mg/dL (9-20); Calcium 9.1 mg/dL (8.4-10.2); Carbon Dioxide 15 mmol/L (22-30); Chloride 115 mmol/L (98-107); Estimated CRCL calculation 48 ml/min; Estimated Glomerular Filt Rate 34; Glucose 144 mg/dL (65-110); Magnesium 2.6 mg/dL (1.6-2.3); Potassium 4.1 mmol/L (3.4-5.0); Sodium 146 mmol/L (137-145)
[2022-07-13 14:09] LABS: Uric Acid 17.9 mg/dL (3.5-8.5)
[2022-07-14] MEDS: LACTATED RINGERS 1,000 ML 150 ML IV CONT ×2 (01:25→08:11)
[2022-07-14 04:43] VITALS: BP 132/64; PULSE 58; RESP 20; TEMP 37.2; O2SAT 95
[2022-07-14 05:02] LABS: Hematocrit 42.9 % (42.0-52.0); Hemoglobin 14.4 g/dL (14.0-18.0); Mean Corpuscular HGB Conc 33.6 g/dl (32-36); Mean Corpuscular Hemoglobin 29.8 pg (26-34); Mean Corpuscular Volume 88.6 fl (80-100); Mean Platelet Volume 9.8 fl (7.4-10.4); Platelet Count Result 307 k/mm3 (150-375); Red Blood Count 4.84 M/mm3 (4.6-6.20); Red Cell Distribution Width 14.4 % (11.5-14.5); White Blood Count 19.8 K/mm3 (4.5-10.0)
[2022-07-14 05:32] LABS: Alanine Aminotransferase 43 U/L (6-50); Albumin Level 3.9 g/dL (3.5-5.1); Alkaline Phosphatase 110 U/L (38-126); Anion Gap 10 mmol/L (8-16); Aspartate Amino Transferase 56 U/L (17-59); Bilirubin,Total 0.6 mg/dL (0.2-1.3); Blood Urea Nitrogen 40 mg/dL (9-20); Calcium 9.1 mg/dL (8.4-10.2); Carbon Dioxide 21 mmol/L (22-30); Chloride 109 mmol/L (98-107); Estimated CRCL calculation 66 ml/min; Estimated Glomerular Filt Rate 47; Glucose 117 mg/dL (65-110); Magnesium 2.1 mg/dL (1.6-2.3); Potassium 3.6 mmol/L (3.4-5.0); Sodium 140 mmol/L (137-145)
[2022-07-14 07:19] LABS: Band Neutrophils Percent 7 % (0-6); Lymphocytes Absolute Manual 1.18 K/mm3 (1.1-4.5); Lymphocytes Percent Manual 6 % (18-44); Monocytes Absolute Manual 1.98 K/mm3 (0.1-0.90); Monocytes Percent Manual 10 % (3-9); Neutrophils Absolute Manual 16.63 K/mm3 (1.3-6.7); Neutrophils Percent Manual 77 % (46-73); Platelet Estimate Adequate (Adequate); Schistocytes None Seen (NORMAL); Total Cells Counted 100
[2022-07-14 08:07] VITALS: BP 121/74; PULSE 62
[2022-07-14] MEDS: ATORVASTATIN 40 MG TABLET 80 MG PO (08:08)
[2022-07-14 08:09] VITALS: PULSE 64
[2022-07-14] MEDS: METOPROLOL SUCCINATE EXT REL 25 MG TABCR PO (08:09)
[2022-07-14] MEDS: CLOPIDOGREL BISULFATE 75 MG TABLET PO (08:09)
[2022-07-14] MEDS: PANTOPRAZOLE SODIUM IV 40 MG VIAL IV PUSH (08:10)
[2022-07-14] MEDS: ACETAMINOPHEN 500 MG TABLET 1000 MG PO (10:31)
--- NOTE | 2022-07-14 10:58 | PM.PNGS ---
Progress Note: A&P Assessment and Plan (1) Small bowel obstruction: Code(s): K56.609 - Unspecified intestinal obstruction, unspecified as to partial versus complete obstruction Status: Acute Assessment and Plan: Advance to full liquids today, possibly home in 1-2 days if improving. (2) Acute kidney injury: Code(s): N17.9 - Acute kidney failure, unspecified Status: Acute Assessment and Plan: Continues to improve. Stop IV fluids as patient is tolerating PO and Cr close to baseline. Subjective Subjective Date/Time Seen: 07/14/22 10:58 Interval history: Tolerating clear liquids. No bloating or nausea. No abdominal pain. Exam GI: Inspection: non-distended GI Palp: Yes Soft to palpation, No Tenderness to palpation present (GI) and No Guarding due to palpation present (GI) Auscultation: normal bowel sounds Objective Data Vital Signs Vital Signs: Vital Signs - 24 hr 07/13/22 14:50 07/13/22 21:08 07/13/22 19:37 Temperature 36.6 C 36.6 C Pulse Rate 77 63 Respiratory Rate 18 20 Blood Pressure 151/85 H 155/83 H 155/83 H Pulse Oximetry 98 95 07/13/22 19:40 07/13/22 19:43 07/14/22 04:43 Temperature 37.2 C Pulse Rate 58 L Respiratory Rate 20 Blood Pressure 169/77 H 152/80 H 132/64 Pulse Oximetry 95 07/14/22 08:07 07/14/22 08:09 Temperature Pulse Rate 62 64 Respiratory Rate Blood Pressure 121/74 Pulse Oximetry Intake/Output Intake/Output: Intake & Output 07/11/22 07/12/22 07/13/22 07/14/22 23:59 23:59 23:59 23:59 Intake Total 3100 3500 5444 2870 Output Total 1800 2450 Balance 1300 1050 5444 2870 Meds/Results Medications: Active Medications Generic Name Dose Route Start Last Admin Trade Name Freq PRN Reason Stop Dose Admin Acetaminophen 1,000 mg 07/14/22 10:19 07/14/22 10:31 Acetaminophen 500 Mg Tablet PO 1,000 mg Q6H PRN Administration Mild Pain (1-3) or Fever Albuterol 2 puff 07/11/22 16:04 Albuterol Sulfate (*Sp) Aerosol 1 Puff INHALATION Q6HRT PRN Shortness Of Breath Atorvastatin Calcium 80 mg 07/14/22 09:00 07/14/22 08:08 Atorvastatin 40 Mg Tablet PO 80 mg DAILY PEPITO Administration Benzocaine 1 lozenge 07/11/22 13:22 07/12/22 20:50 Benzocaine/Menthol (*Bkc) 18 Ea Lozenge PO 1 lozenge PRN PRN Administration Sore Throat Clopidogrel Bisulfate 75 mg 07/14/22 09:00 07/14/22 08:09 Clopidogrel Bisulfate 75 Mg Tablet PO 75 mg DAILY PEPITO Administration Hydromorphone HCl 0.5 mg 07/10/22 22:55 07/10/22 23:53 Hydromorphone Hcl Inj (*Crx) 1 Mg/Ml Syr IV PUSH 0.5 mg Q3H PRN Administration Pain Rated 7-10 Metoprolol Succinate 25 mg 07/14/22 09:00 07/14/22 08:09 Metoprolol Succinate Ext Rel 25 Mg Tabcr PO 25 mg DAILY PEPITO Administration Olmesartan 40 mg 07/14/22 09:00 Olmesartan Medoxomil 20 Mg Tablet PO QAM PEPITO Ondansetron HCl 4 mg 07/10/22 20:21 07/11/22 22:57 Ondansetron Inj 4 Mg/2 Ml Vial IV PUSH 4 mg Q6H PRN Administration Nausea And Vomiting Pantoprazole Sodium 40 mg 07/11/22 16:05 07/14/22 08:10 Pantoprazole Sodium Iv 40 Mg Vial IV PUSH 40 mg QAM PEPITO Administration Radiology Results: ITS Impressions Chest X-Ray 07/10/22 14:20 Impression: 1: No acute cardiopulmonary disease. 2: Stable scarring/atelectasis right mid and lower lung compared with prior study. Abdomen/Pelvis CT 07/10/22 15:31 IMPRESSION: 1. Small bowel obstruction with transition point at the umbilical hernia. Renal Ultrasound 07/10/22 22:15 IMPRESSION: Unremarkable renal sonogram findings. Small Bowel X-Ray 07/12/22 12:44 IMPRESSION: 1. Partial small bowel obstruction. Abdomen X-Ray 07/13/22 06:34 Impression: NG tube in place, with nonspecific bowel gas pattern. There is contrast throughout large and small bowel. Labs Labs: Laboratory Results - last 24 hr
--- NOTE | 2022-07-14 11:30 | P.PNIM_ITS ---
Progress Note: A&P Assessment and Plan (1) Small bowel obstruction: Code(s): K56.609 - Unspecified intestinal obstruction, unspecified as to partial versus complete obstruction Status: Acute Assessment and Plan: * Presented with abdominal pain, nausea, and vomiting. * CT on presentation showed small-bowel obstruction with transition point and umbilical hernia * NG tube removed 07/13/22 * appreciate general surgery recommendations * advance to full liquid * analgesics and antiemetics available as needed * small-bowel follow-through indicated continuing bowel obstruction (07/12/22) * KUB (07/13/22) nonspecific bowel gas pattern, contrast throughout large and small bowel (2) Acute kidney injury: Code(s): N17.9 - Acute kidney failure, unspecified Status: Acute Assessment and Plan: * BUN/Cr at admission 86/5.30, currently trending down at 40/1.50 * likely related to dehydration from nausea, vomiting, diarrhea, and poor intake * Baseline appears to be a Cr of 1.0-1.2 * continue with IV fluid rehydration * renal ultrasound unremarkable * FENa score is 0.5% indicating failure is pre-renal * appreciate nephrology recommendations * continue to trend renal function (3) Gout: Code(s): M10.9 - Gout, unspecified Status: Acute Assessment and Plan: * Uric acid is elevated at 15.5 with complaints of right great toe pain * Currently 17.9 * Not a candidate at this time for PO therapy with new renal failure * steroids considered, however patient requested to defer given improvement in pain * Consider Allopurinol with resolution of renal failure * Solumedrol 125mg IV once given 07/12/22 * Patient would probably benefit from PO therapy at discharge (4) Obstructive sleep apnea on CPAP: Code(s): G47.33 - Obstructive sleep apnea (adult) (pediatric); Z99.89 - Dependence on other enabling machines and devices Status: Chronic Assessment and Plan: * CPAP held while NG tube is in place (5) Hyperlipidemia: Code(s): E78.5 - Hyperlipidemia, unspecified Status: Chronic Assessment and Plan: * LFTs reviewed and stable to continue atorvastatin when no longer NPO (6) Gastroesophageal reflux disease: Code(s): K21.9 - Gastro-esophageal reflux disease without esophagitis Status: Chronic Assessment and Plan: * IV pantoprazole while NPO (7) Chronic obstructive pulmonary disease: Code(s): J44.9 - Chronic obstructive pulmonary disease, unspecified Status: Chronic Assessment and Plan: * not in acute exacerbation. Albuterol as needed Time Spent With Patient Time: 48 minutes Time with patient: Greater than 35 minutes Subjective Date/time seen: 07/14/221129 Interval history: 07/14/221129 Patient stated is doing okay today. Patient is hoping to be discharged tomorrow. He did state that he has had solid BM yesterday and today. He also stated that he has not been able to get any sleep. He is really excited that he gets did advance his diet. He also denies any chest pain, shortness a breath, nausea, vomiting. 07/13/22 103 Patient is feeling better today. Patient did state that he was going to have a bowel movement and was able to walk to the bathroom. He denies any current chest pain, shortness a breath, nausea, vomiting, diarrhea or constipation. White count is slightly elevated
--- NOTE | 2022-07-14 11:30 | PM.IMPN ---
Progress Note: A&P Assessment and Plan (1) Small bowel obstruction: Code(s): K56.609 - Unspecified intestinal obstruction, unspecified as to partial versus complete obstruction Status: Acute Assessment and Plan: Presented with abdominal pain, nausea, and vomiting. CT on presentation showed small-bowel obstruction with transition point and umbilical hernia NG tube removed 07/13/22 appreciate general surgery recommendations advance to full liquid analgesics and antiemetics available as needed small-bowel follow-through indicated continuing bowel obstruction (07/12/22) KUB (07/13/22) nonspecific bowel gas pattern, contrast throughout large and small bowel (2) Acute kidney injury: Code(s): N17.9 - Acute kidney failure, unspecified Status: Acute Assessment and Plan: BUN/Cr at admission 86/5.30, currently trending down at 40/1.50 likely related to dehydration from nausea, vomiting, diarrhea, and poor intake Baseline appears to be a Cr of 1.0-1.2 continue with IV fluid rehydration renal ultrasound unremarkable FENa score is 0.5% indicating failure is pre-renal appreciate nephrology recommendations continue to trend renal function (3) Gout: Code(s): M10.9 - Gout, unspecified Status: Acute Assessment and Plan: Uric acid is elevated at 15.5 with complaints of right great toe pain Currently 17.9 Not a candidate at this time for PO therapy with new renal failure steroids considered, however patient requested to defer given improvement in pain Consider Allopurinol with resolution of renal failure Solumedrol 125mg IV once given 07/12/22 Patient would probably benefit from PO therapy at discharge (4) Obstructive sleep apnea on CPAP: Code(s): G47.33 - Obstructive sleep apnea (adult) (pediatric); Z99.89 - Dependence on other enabling machines and devices Status: Chronic Assessment and Plan: CPAP held while NG tube is in place (5) Hyperlipidemia: Code(s): E78.5 - Hyperlipidemia, unspecified Status: Chronic Assessment and Plan: LFTs reviewed and stable to continue atorvastatin when no longer NPO (6) Gastroesophageal reflux disease: Code(s): K21.9 - Gastro-esophageal reflux disease without esophagitis Status: Chronic Assessment and Plan: IV pantoprazole while NPO (7) Chronic obstructive pulmonary disease: Code(s): J44.9 - Chronic obstructive pulmonary disease, unspecified Status: Chronic Assessment and Plan: not in acute exacerbation. Albuterol as needed Time Spent With Patient Time: 48 minutes Time with patient: Greater than 35 minutes Subjective Date/time seen: 07/14/22 1130 Interval history: 07/14/22 113 Patient stated is doing okay today. Patient is hoping to be discharged tomorrow. He did state that he has had solid BM yesterday and today. He also stated that he has not been able to get any sleep. He is really excited that he gets did advance his diet. He also denies any chest pain, shortness a breath, nausea, vomiting. 07/13/22 1030 Patient is feeling better today. Patient did state that he was going to have a bowel movement and was able to walk to the bathroom. He denies any current chest pain, shortness a breath, nausea, vomiting, diarrhea or constipation. White count is slightly elevated however he did get a dose of steroids. NG tube was removed by General surgery. Diet was advanced 07/12/22 1315 Patient seems a little frustrated. Patient is wanting to eat however he is stating that he is not having any gas. He did state that he was having little gas but nothing substantial. NG tube was hooked up and it did drain about 100 mL. He denies any nausea, vomiting. He also denies any further abdominal distension or pain. He did state that he had been his toes better and he is af
[2022-07-14 11:51] VITALS: BP 129/71
[2022-07-14] MEDS: OLMESARTAN MEDOXOMIL 20 MG TABLET 40 MG PO (11:52)
--- NOTE | 2022-07-14 12:38 | PM.PNNEP ---
Progress Note: A&P Assessment and Plan (1) Acute kidney injury: Code(s): N17.9 - Acute kidney failure, unspecified Status: Acute Assessment and Plan: improving likely due to a combination of dehydration/volume depletion from GI loss (vomiting/diarrhea), relative hypotension and use of ARB therapy prior to admission evaluation to date: renal ultrasound without obstruction urine studies consistent with pre-renal azotemia urine eosinophils negative was holding ARB on admission follow trend of repeat labs and UOP (2) Small bowel obstruction: Code(s): K56.609 - Unspecified intestinal obstruction, unspecified as to partial versus complete obstruction Status: Acute Assessment and Plan: as evidence of symptoms as well as imaging on admission CT scan with small bowel obstruction with transition point at the area of the previous ventral hernia repair s/p NG tube placement on admission; NG tube out currently Surgery following (3) Hypertension: Code(s): I10 - Essential (primary) hypertension Status: Chronic Assessment and Plan: improving/rising follow trend of hemodynamics resumed on metoprolol and olmesartan (4) Metabolic acidosis: Code(s): E87.20 - Acidosis, unspecified Status: Acute Assessment and Plan: resolving due to a combination of MELISSA and GI losses Will continue to follow. Subjective Date/time seen: 07/14/22 12:38 Continues to do quite well at this time; having bowel movement and diet continues to be advanced; renal function/creatinine continues to improve as well; no apparent distress noted at the time of my visit. Exam Narrative: General: WD/WN male in NAD Heart: normal S1 and S2; no rub Lungs: clear to auscultation Abdomen: soft, nontender, nondistended, + bowel sounds Extremities: no cyanosis or clubbing; no edema Skin: warm and intact Objective Data Vital Signs Vital Signs: Vital Signs Temp Pulse Resp BP Pulse Ox O2 Del Method 07/14/22 11:51 129/71 07/14/22 08:00 Room Air 07/14/22 08:09 64 07/14/22 08:07 62 121/74 07/14/22 04:43 98.9 F 58 L 20 132/64 95 07/13/22 19:43 152/80 H 07/13/22 19:40 169/77 H 07/13/22 19:37 155/83 H 07/13/22 21:08 98 F 63 20 155/83 H 95 07/13/22 14:50 98 F 77 18 151/85 H 98 Intake/Output Intake/Output: Intake & Output 07/11/22 07/12/22 07/13/22 07/14/22 23:59 23:59 23:59 23:59 Intake Total 3100 3500 5444 2870 Output Total 1800 2450 Balance 1300 1050 5444 2870 Meds/Results Medications: Active Medications Generic Name Dose Route Start Last Admin Trade Name Freq PRN Reason Stop Dose Admin Acetaminophen 1,000 mg 07/14/22 10:19 07/14/22 10:31 Acetaminophen 500 Mg Tablet PO 1,000 mg Q6H PRN Administration Mild Pain (1-3) or Fever Albuterol 2 puff 07/11/22 16:04 Albuterol Sulfate (*Sp) Aerosol 1 Puff INHALATION Q6HRT PRN Shortness Of Breath Atorvastatin Calcium 80 mg 07/14/22 09:00 07/14/22 08:08 Atorvastatin 40 Mg Tablet PO 80 mg DAILY PEPITO Administration Benzocaine 1 lozenge 07/11/22 13:22 07/12/22 20:50 Benzocaine/Menthol (*Bkc) 18 Ea Lozenge PO 1 lozenge PRN PRN Administration Sore Throat Clopidogrel Bisulfate 75 mg 07/14/22 09:00 07/14/22 08:09 Clopidogrel Bisulfate 75 Mg Tablet PO 75 mg DAILY PEPITO Administration Hydromorphone HCl 0.5 mg 07/10/22 22:55 07/10/22 23:53 Hydromorphone Hcl Inj (*Crx) 1 Mg/Ml Syr IV PUSH 0.5 mg Q3H PRN Administration Pain Rated 7-10 Metoprolol Succinate 25 mg 07/14/22 09:00 07/14/22 08:09 Metoprolol Succinate Ext Rel 25 Mg Tabcr PO 25 mg DAILY PEPITO Administration Olmesartan 40 mg 07/14/22 09:00 07/14/22 11:52 Olmesartan Medoxomil 20 Mg Tablet PO 40 mg QAM PEPITO Administration Ondansetron HCl 4 mg 07/10/22 20:21 07/11/22 22:57
[2022-07-14 14:10] VITALS: BP 133/73; PULSE 57; RESP 16; TEMP 36.4; O2SAT 97
[2022-07-14 20:20] VITALS: BP 148/76; PULSE 56; RESP 20; TEMP 36.6; O2SAT 96
[2022-07-15 05:06] LABS: Basophils Absolute Auto 0.2 K/mm3 (0.0-0.1); Basophils Percent Auto 1.4 % (0.2-1.2); Eosinophils Absolute Auto 0.2 K/mm3 (0-0.3); Eosinophils Percent Auto 1.9 % (0-4.4); Hematocrit 36.1 % (42.0-52.0); Hemoglobin 12.2 g/dL (14.0-18.0); Immature Granulocyte Absolute 1.07 K/mm3 (0.00-0.031); Immature Granulocyte Percent A 9.1 % (0-0.5); Mean Corpuscular HGB Conc 33.8 g/dl (32-36); Mean Corpuscular Hemoglobin 29.5 pg (26-34); Mean Corpuscular Volume 87.2 fl (80-100); Mean Platelet Volume 9.8 fl (7.4-10.4); Monocytes Absolute Auto 0.9 K/mm3 (0.1-0.6); Monocytes Percent Auto 7.4 % (2.6-8.5); Neutrophils Absolute Auto 8.2 K/mm3 (1.3-6.7); Neutrophils Percent Auto 69.2 % (45.5-73.1); Platelet Count Result 215 k/mm3 (150-375); Red Blood Count 4.14 M/mm3 (4.6-6.20); Red Cell Distribution Width 13.8 % (11.5-14.5); White Blood Count 11.8 K/mm3 (4.5-10.0)
[2022-07-15 05:25] LABS: Alanine Aminotransferase 40 U/L (6-50); Albumin Level 3.1 g/dL (3.5-5.1); Alkaline Phosphatase 83 U/L (38-126); Anion Gap 5 mmol/L (8-16); Aspartate Amino Transferase 51 U/L (17-59); Bilirubin,Total 0.7 mg/dL (0.2-1.3); Blood Urea Nitrogen 25 mg/dL (9-20); Calcium 8.2 mg/dL (8.4-10.2); Carbon Dioxide 24 mmol/L (22-30); Chloride 109 mmol/L (98-107); Estimated CRCL calculation 82 ml/min; Estimated Glomerular Filt Rate > 60; Glucose 97 mg/dL (65-110); Magnesium 1.7 mg/dL (1.6-2.3); Potassium 3.1 mmol/L (3.4-5.0); Sodium 138 mmol/L (137-145)
[2022-07-15 05:37] VITALS: BP 145/72; PULSE 55; RESP 20; TEMP 36.5; O2SAT 94
--- NOTE | 2022-07-15 07:45 | P.DS_ITS ---
DS: Admitting Diagnosis Discharge Date 07/15/22 0745 Admitting Diagnosis Small bowel obstruction DS: Discharge Diagnosis Discharge Diagnosis (1) Small bowel obstruction: Code(s): K56.609 - Unspecified intestinal obstruction, unspecified as to partial versus complete obstruction Status: Acute Assessment and Plan: * Presented with abdominal pain, nausea, and vomiting. * CT on presentation showed small-bowel obstruction with transition point and umbilical hernia * NG tube removed 07/13/22 * appreciate general surgery recommendations * advance to full liquid * analgesics and antiemetics available as needed * small-bowel follow-through indicated continuing bowel obstruction (07/12/22) * KUB (07/13/22) nonspecific bowel gas pattern, contrast throughout large and small bowel (2) Acute kidney injury: Code(s): N17.9 - Acute kidney failure, unspecified Status: Acute Assessment and Plan: * BUN/Cr at admission 86/5.30, currently trending down at 40/1.50 * likely related to dehydration from nausea, vomiting, diarrhea, and poor intake * Baseline appears to be a Cr of 1.0-1.2 * continue with IV fluid rehydration * renal ultrasound unremarkable * FENa score is 0.5% indicating failure is pre-renal * appreciate nephrology recommendations * continue to trend renal function (3) Gout: Code(s): M10.9 - Gout, unspecified Status: Acute Assessment and Plan: * Uric acid is elevated at 15.5 with complaints of right great toe pain * Currently 17.9 * Not a candidate at this time for PO therapy with new renal failure * steroids considered, however patient requested to defer given improvement in pain * Consider Allopurinol with resolution of renal failure * Solumedrol 125mg IV once given 07/12/22 * Patient would probably benefit from PO therapy at discharge (4) Obstructive sleep apnea on CPAP: Code(s): G47.33 - Obstructive sleep apnea (adult) (pediatric); Z99.89 - Dependence on other enabling machines and devices Status: Chronic Assessment and Plan: * CPAP held while NG tube is in place (5) Hyperlipidemia: Code(s): E78.5 - Hyperlipidemia, unspecified Status: Chronic Assessment and Plan: * LFTs reviewed and stable to continue atorvastatin when no longer NPO (6) Gastroesophageal reflux disease: Code(s): K21.9 - Gastro-esophageal reflux disease without esophagitis Status: Chronic Assessment and Plan: * IV pantoprazole while NPO (7) Chronic obstructive pulmonary disease: Code(s): J44.9 - Chronic obstructive pulmonary disease, unspecified Status: Chronic Assessment and Plan: * not in acute exacerbation. Albuterol as needed DS: Summary Hospital Course Hospital Course: Patient is a 66-year-old male with past medical history of hypertension, hyperlipidemia, gout, COPD, obstructive sleep apnea, GERD, TIA who presented the ED with complaints nausea, vomiting, diarrhea. Events all started on prior to arrival. CT of the abdomen and pelvis showed small-bowel obstruction with transition point at the umbilicus. General surgery has been consulted and NG tube was initiated. Patient does have a history of hernia repairs in the past. Patient was also complaining pain in his left great toe. Uric acid was elevated and continued rise however patient was not seeking treatment at this time and wanted to hold
--- NOTE | 2022-07-15 07:45 | PM.DS ---
DS: Admitting Diagnosis Discharge Date 07/15/22 0745 Admitting Diagnosis Small bowel obstruction DS: Discharge Diagnosis Discharge Diagnosis (1) Small bowel obstruction: Code(s): K56.609 - Unspecified intestinal obstruction, unspecified as to partial versus complete obstruction Status: Acute Assessment and Plan: Presented with abdominal pain, nausea, and vomiting. CT on presentation showed small-bowel obstruction with transition point and umbilical hernia NG tube removed 07/13/22 appreciate general surgery recommendations advance to full liquid analgesics and antiemetics available as needed small-bowel follow-through indicated continuing bowel obstruction (07/12/22) KUB (07/13/22) nonspecific bowel gas pattern, contrast throughout large and small bowel (2) Acute kidney injury: Code(s): N17.9 - Acute kidney failure, unspecified Status: Acute Assessment and Plan: BUN/Cr at admission 86/5.30, currently trending down at 40/1.50 likely related to dehydration from nausea, vomiting, diarrhea, and poor intake Baseline appears to be a Cr of 1.0-1.2 continue with IV fluid rehydration renal ultrasound unremarkable FENa score is 0.5% indicating failure is pre-renal appreciate nephrology recommendations continue to trend renal function (3) Gout: Code(s): M10.9 - Gout, unspecified Status: Acute Assessment and Plan: Uric acid is elevated at 15.5 with complaints of right great toe pain Currently 17.9 Not a candidate at this time for PO therapy with new renal failure steroids considered, however patient requested to defer given improvement in pain Consider Allopurinol with resolution of renal failure Solumedrol 125mg IV once given 07/12/22 Patient would probably benefit from PO therapy at discharge (4) Obstructive sleep apnea on CPAP: Code(s): G47.33 - Obstructive sleep apnea (adult) (pediatric); Z99.89 - Dependence on other enabling machines and devices Status: Chronic Assessment and Plan: CPAP held while NG tube is in place (5) Hyperlipidemia: Code(s): E78.5 - Hyperlipidemia, unspecified Status: Chronic Assessment and Plan: LFTs reviewed and stable to continue atorvastatin when no longer NPO (6) Gastroesophageal reflux disease: Code(s): K21.9 - Gastro-esophageal reflux disease without esophagitis Status: Chronic Assessment and Plan: IV pantoprazole while NPO (7) Chronic obstructive pulmonary disease: Code(s): J44.9 - Chronic obstructive pulmonary disease, unspecified Status: Chronic Assessment and Plan: not in acute exacerbation. Albuterol as needed DS: Summary Hospital Course Hospital Course: Patient is a 66-year-old male with past medical history of hypertension, hyperlipidemia, gout, COPD, obstructive sleep apnea, GERD, TIA who presented the ED with complaints nausea, vomiting, diarrhea. Events all started on prior to arrival. CT of the abdomen and pelvis showed small-bowel obstruction with transition point at the umbilicus. General surgery has been consulted and NG tube was initiated. Patient does have a history of hernia repairs in the past. Patient was also complaining pain in his left great toe. Uric acid was elevated and continued rise however patient was not seeking treatment at this time and wanted to hold off on any kind of treatment. It was also noted that his BUN and creatinine were 86/5.30. Patient was started on IV fluids and Nephrology was consulted. Labs have been on trend and patient is noted to be it back at baseline with a BUN of 25 and creatinine of 1.20. Diet has been slowly advanced and patient has been able to tolerate a low-fiber diet at this time. Patient has also had multiple solid bowel movements. Renal ultrasound was negative for any acute abnormalities venou
[2022-07-15 08:36] VITALS: BP 145/73; PULSE 56
[2022-07-15] MEDS: POTASSIUM CHLORIDE 20 MEQ TABLET 80 MEQ PO (08:38)
[2022-07-15 08:40] VITALS: PULSE 56
[2022-07-15] MEDS: CLOPIDOGREL BISULFATE 75 MG TABLET PO (08:40)
[2022-07-15] MEDS: METOPROLOL SUCCINATE EXT REL 25 MG TABCR PO (08:40)
[2022-07-15] MEDS: ATORVASTATIN 40 MG TABLET 80 MG PO (08:40)
[2022-07-15] MEDS: OLMESARTAN MEDOXOMIL 20 MG TABLET 40 MG PO (08:41)
[2022-07-15] MEDS: PANTOPRAZOLE SODIUM IV 40 MG VIAL IV PUSH (08:41)
[2022-07-15] MEDS: MAGNESIUM SULF 4 GM/WATER100ML 4 GM/100 ML BAG IVPB (08:42)
--- NOTE | 2022-07-15 11:51 | PM.PNGS ---
Progress Note: A&P Assessment and Plan (1) Small bowel obstruction: Code(s): K56.609 - Unspecified intestinal obstruction, unspecified as to partial versus complete obstruction Status: Acute Assessment and Plan: Advance to regular diet today. Home this afternoon if tolerating diet. Return to ED for recurrent symptoms. (2) Acute kidney injury: Code(s): N17.9 - Acute kidney failure, unspecified Status: Acute Assessment and Plan: Cr 1.2 Subjective Subjective Date/Time Seen: 07/15/22 11:51 Interval history: Tolerating diet. Passing flatus. No bloating or nausea. No more diarrhea. Feeling better. Exam GI: Inspection: non-distended GI Palp: Yes Soft to palpation, No Tenderness to palpation present (GI) and No Guarding due to palpation present (GI) Auscultation: normal bowel sounds Objective Data Vital Signs Vital Signs: Vital Signs - 24 hr 07/14/22 14:10 07/14/22 20:20 07/15/22 05:37 Temperature 36.4 C L 36.6 C 36.5 C Pulse Rate 57 L 56 L 55 L Respiratory Rate 16 20 20 Blood Pressure 133/73 148/76 H 145/72 H Pulse Oximetry 97 96 94 Oxygen Delivery 07/15/22 08:36 07/15/22 08:40 07/15/22 08:35 Temperature Pulse Rate 56 L 56 L Respiratory Rate Blood Pressure 145/73 H Pulse Oximetry Oxygen Delivery Room Air Intake/Output Intake/Output: Intake & Output 07/12/22 07/13/22 07/14/22 07/15/22 23:59 23:59 23:59 23:59 Intake Total 3500 5444 3800 935 Output Total 2450 Balance 1050 5444 3800 935 Meds/Results Medications: Active Medications Generic Name Dose Route Start Last Admin Trade Name Freq PRN Reason Stop Dose Admin Acetaminophen 1,000 mg 07/14/22 10:19 07/14/22 10:31 Acetaminophen 500 Mg Tablet PO 1,000 mg Q6H PRN Administration Mild Pain (1-3) or Fever Albuterol 2 puff 07/11/22 16:04 Albuterol Sulfate (*Sp) Aerosol 1 Puff INHALATION Q6HRT PRN Shortness Of Breath Atorvastatin Calcium 80 mg 07/14/22 09:00 07/15/22 08:40 Atorvastatin 40 Mg Tablet PO 80 mg DAILY PEPITO Administration Benzocaine 1 lozenge 07/11/22 13:22 07/12/22 20:50 Benzocaine/Menthol (*Bkc) 18 Ea Lozenge PO 1 lozenge PRN PRN Administration Sore Throat Clopidogrel Bisulfate 75 mg 07/14/22 09:00 07/15/22 08:40 Clopidogrel Bisulfate 75 Mg Tablet PO 75 mg DAILY PEPITO Administration Hydromorphone HCl 0.5 mg 07/10/22 22:55 07/10/22 23:53 Hydromorphone Hcl Inj (*Crx) 1 Mg/Ml Syr IV PUSH 0.5 mg Q3H PRN Administration Pain Rated 7-10 Metoprolol Succinate 25 mg 07/14/22 09:00 07/15/22 08:40 Metoprolol Succinate Ext Rel 25 Mg Tabcr PO 25 mg DAILY PEPITO Administration Olmesartan 40 mg 07/14/22 09:00 07/15/22 08:41 Olmesartan Medoxomil 20 Mg Tablet PO 40 mg QAM PEPITO Administration Ondansetron HCl 4 mg 07/10/22 20:21 07/11/22 22:57 Ondansetron Inj 4 Mg/2 Ml Vial IV PUSH 4 mg Q6H PRN Administration Nausea And Vomiting Pantoprazole Sodium 40 mg 07/11/22 16:05 07/15/22 08:41 Pantoprazole Sodium Iv 40 Mg Vial IV PUSH 40 mg QAM PEPITO Administration Radiology Results: ITS Impressions Chest X-Ray 07/10/22 14:20 Impression: 1: No acute cardiopulmonary disease. 2: Stable scarring/atelectasis right mid and lower lung compared with prior study. Abdomen/Pelvis CT 07/10/22 15:31 IMPRESSION: 1. Small bowel obstruction with transition point at the umbilical hernia. Renal Ultrasound 07/10/22 22:15 IMPRESSION: Unremarkable renal sonogram findings. Small Bowel X-Ray 07/12/22 12:44 IMPRESSION: 1. Partial small bowel obstruction. Abdomen X-Ray 07/13/22 06:34 Impression: NG tube in place, with nonspecific bowel gas pattern. There is contrast throughout large and small bowel. Labs Labs: Laboratory Results - last 24 hr 07/15/22 07/15/22 04:57 04:57 WBC 11.8 H RBC 4.14 L Hgb 12.2 L Hct 36.
== END 2022-07-15 13:15 | disposition home or self-care (01) | DRG 389 ==
LOC: ANHED 16:07 → ANH2MED 18:21
PROVIDERS: Emergency Medicine; Physician Assistant; Surgery; Admitting Provider Internal Medicine; Emergency Provider Emergency Medicine; PCP Internal Medicine; Visit Provider Nurse Practitioner
DX: K56.609 Unspecified intestinal obstruction, unspecified as to partial versus complete obstruction (principal); E87.20 Acidosis, unspecified; N17.9 Acute kidney failure, unspecified; M10.9 Gout, unspecified; E78.5 Hyperlipidemia, unspecified; E86.0 Dehydration; G47.33 Obstructive sleep apnea (adult) (pediatric); I95.9 Hypotension, unspecified; I10 Essential (primary) hypertension; J44.9 Chronic obstructive pulmonary disease, unspecified; K21.9 Gastro-esophageal reflux disease without esophagitis; K42.9 Umbilical hernia without obstruction or gangrene; Z20.822 Contact with and (suspected) exposure to COVID-19; Z99.89 Dependence on other enabling machines and devices; Z86.73 Personal history of transient ischemic attack (TIA), and cerebral infarction without residual deficits; Z87.891 Personal history of nicotine dependence; Z79.02 Long term (current) use of antithrombotics/antiplatelets
CPT/HCPCS: 36415; 71046; 74018; 74176; 74250; 76775; 80048; 80053; 81001; 82550; 82570; 83605; 83690; 83735; 84100; 84133; 84156; 84300; 84550; 85025; 85027; 85652; 85999; 86140; 87040; 87637; 93005; 96361; 96365; 96375; 99285; A9270; C9113; J0131; J1170; J2405; J2930; J3010; J3475; J7030; J7120

== ENCOUNTER 2023-06-27 19:02 | Emergency (ER) | payer MEDICARE, SELFPAY ==
--- NOTE | ~2023-06-27 | CT_ITS ---
EXAMINATION: CT abdomen pelvis w con DATE: 06/27/2023 21:16 INDICATION: Abdominal pain and distention TECHNIQUE: Computed tomography (CT) of the abdomen and pelvis was performed with 100 mL Omnipaque-350 intravenous contrast. Automated exposure control and iterative reconstruction technique were employe d. The dose-length product was 1513.30 mGy-cm. COMPARISON: 07/10/2022 FINDINGS: Stable appearance of chronic right-sided pleural thickening with peripheral round atelectasis in the posterior right lower lobe. Heart size is normal. Atherosclerotic coronary artery calcification. No p ericardial or pleural effusion. There is some edematous-appearing wall thickening in the distal esoph diya which could be seen with esophagitis related to reflux or vomiting. There is distention of the s tomach. Liver, gallbladder, spleen, pancreas, bilateral adrenal glands and kidneys are normal. There is fluid scattered throughout the large and small bowel without yonatan dilation or transition point to suggest obstruction. A few of the loops of bowel extends into a widemouthed ventral hernia. Moderate diverticulosis along the descending and sigmoid colon without adjacent inflammatory change to sugges t diverticulitis. Bladder is normal. Prostatomegaly. Small fat-containing left inguinal hernia. No fr ee intraperitoneal gas or fluid. No pathologically enlarged abdominal or pelvic lymphadenopathy. 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 There are a few old healed rig ht-sided rib fractures. Mild thoracolumbar spondylosis. IMPRESSION: 1. Extensive fluid throughout nondilated large and small bowel consistent with nonspecific diarrhea. No yonatan dilation or transition point to suggest obstruction. 2. Edematous-appearing wall thickening of the distal esophagus which could be seen with esophagitis r elated to reflux or vomiting. Reviewed, dictated and finalized at location A. [employer] TECHNICIAN IMPRESSION: 1. Extensive fluid throughout nondilated large and small bowel consistent with nonspecific diarrhea. No yonatan dilation or transition point to suggest obstruct ion. 2. Edematous-appearing wall thickening of the distal esophagus which could be s een with esophagitis related to reflux or vomiting.
--- NOTE | ~2023-06-27 | XR_ITS ---
EXAMINATION: XR chest 1V portable DATE: 06/27/2023 20:32 INDICATION: Abdominal pain TECHNIQUE: frontal view of the chest was obtained. COMPARISON: Chest radiograph and CT abdomen and pelvis. Dated 07/10/2022 FINDINGS: Unchanged mild decreased volume in the right hemithorax. There is pleural thickening along the periph manny of the right lung with unchanged airspace opacities including linear and curvilinear discoid atel ectasis/scarring in the right mid and lower lung zones. Left lung remains clear. No pleural effusion or pneumothorax. Heart size within normal limits for AP technique. IMPRESSION: 1. Unchanged mild volume loss and pleural thickening in the right hemithorax with stable appearance o f atelectasis/scarring in the right mid and lower lung zones. Reviewed, dictated and finalized at location A. RGLASS ROVING WINDER IMPRESSION: 1. Unchanged mild volume loss and pleural thickening in the right hemithorax wi th stable appearance of atelectasis/scarring in the right mid and lower lung zo stacie.
[2023-06-27 19:06] VITALS: BP 138/81; PULSE 90; RESP 25; TEMP 36.5; O2SAT 96
[2023-06-27 19:37] LABS: Hematocrit 47.7 % (42.0-52.0); Hemoglobin 15.9 g/dL (14.0-18.0); Mean Corpuscular HGB Conc 33.3 g/dl (32-36); Mean Corpuscular Hemoglobin 29.3 pg (26-34); Mean Corpuscular Volume 87.8 fl (80-100); Mean Platelet Volume 10.3 fl (7.4-10.4); Platelet Count Result 294 k/mm3 (150-375); Red Blood Count 5.43 M/mm3 (4.6-6.20); Red Cell Distribution Width 13.9 % (11.5-14.5); White Blood Count 5.8 K/mm3 (4.5-10.0)
[2023-06-27 19:50] LABS: Band Neutrophils Percent 14 % (0-6); Eosinophils Absolute Manual 0.05 K/mm3 (0.02-0.5); Eosinophils Percent Manual 1 % (0-4); Lymphocytes Absolute Manual 1.04 K/mm3 (1.1-4.5); Lymphocytes Percent Manual 18 % (18-44); Monocytes Absolute Manual 1.04 K/mm3 (0.1-0.90); Monocytes Percent Manual 18 % (3-9); Neutrophils Absolute Manual 3.65 K/mm3 (1.3-6.7); Neutrophils Percent Manual 49 % (46-73); Platelet Estimate Adequate (Adequate); Total Cells Counted 100
[2023-06-27 19:51] LABS: Ovalocytes 1+ (NORMAL); Schistocytes None Seen (NORMAL)
[2023-06-27 19:55] LABS: Alanine Aminotransferase 33 U/L (6-50); Alkaline Phosphatase 98 U/L (38-126); Anion Gap 13 mmol/L (8-16); Aspartate Amino Transferase 32 U/L (17-59); Bilirubin,Total 1.6 mg/dL (0.2-1.3); Blood Urea Nitrogen 45 mg/dL (9-20); Carbon Dioxide 17 mmol/L (22-30); Chloride 106 mmol/L (98-107); Estimated CRCL calculation 76 ml/min; Estimated Glomerular Filt Rate 60; Glucose 106 mg/dL (65-110); Lipase 68 U/L (23-300); Potassium 3.9 mmol/L (3.4-5.0); Sodium 136 mmol/L (137-145)
--- NOTE | 2023-06-27 20:17 | ED.ABDPAIN ---
HPI - Abdominal Pain General Chief Complaint: Abdominal Pain Stated Complaint: N/V/D/ ABD PAIN; Hx OF SBO Time Seen by Provider: 06/27/23 19:14 Source: patient Limitations: no limitations History of Present Illness HPI narrative: Patient is a 67-year-old male presents to the emergency department complaining of I think I have a bowel obstruction . Patient states he developed pain Saturday evening in his upper abdomen, feels like nausea and like he is being punched, states that the pain comes and goes, admits to associated abdominal distention, tried Tylenol for the discomfort a couple days ago without any significant relief, feels like lying on his side makes the pain slightly worse and otherwise has not noticed anything making the pain better, denies radiation of the discomfort. Patient admits to associated heartburn. Patient is to history of a bowel obstruction 1 year ago and when she had an NG-tube placed and did not require surgery as a got better and was seen by Dr. Ulrich. patient admits to history of a hernia repair surgery. Patient admits to associated nausea with current nausea, vomiting and also started Saturday night and has been persistent with couple episodes daily that appear orange in color, also admits to associated diarrhea it has been green in appearance with a couple episodes daily and his last green diarrhea bowel movement was at 4:00 p.m. today. Patient denies chest pain, difficulty breathing, urinary discomfort, melena, hematochezia, recent injuries, recent illness, fever, numbness, weakness, cough. Patient admits to some slightly decreased urine output. Patient is to feeling dehydrated. Related Data Home Medications Medication Instructions Recorded Confirmed clopidogrel 75 mg tablet (Plavix) 75 mg PO DAILY 12/20/21 05/22/23 allopurinol 100 mg tablet 100 mg PO DAILY 01/24/23 05/22/23 olmesartan 40 mg tablet 20 mg PO DAILY 01/24/23 05/22/23 omeprazole 40 mg capsule,delayed 40 mg PO DAILY PRN 05/22/23 05/22/23 release Allergies Allergy/AdvReac Type Severity Reaction Status Date / Time No Known Allergies Allergy Verified 05/22/23 10:25 Review of Systems Review of Systems: A 10 system review of systems was completed on the patient and is negative except for what is stated in the HPI. Nursing and ancillary documentation was reviewed. [facility] Past Medical History Medical History Chronic obstructive pulmonary disease Gastroesophageal reflux disease Gout Hyperlipidemia Hypertension Obstructive sleep apnea on CPAP Transient ischemic attack (2016) Surgical History Surgical History History of tonsillectomy History of umbilical hernia repair Dr. Norton History of ventral hernia repair (01/2022) Status post excision of lipoma Status post transsphenoidal pituitary resection Family History Family History Father Heart disease Mother Diabetes mellitus Breast cancer Cerebrovascular accident Social History Social History Social History: Surrogate medical decision maker: Dolores Arce, friend. Code status: Full code. Smoking packs per day: 0.5 Smoking cigarettes per day: 10.0 Years smoked: 5 Smoking pack-years: 2.50 Smoking status: Former smoker Alcohol intake: current Drinks per week: 8 Substance use: never Lack of Transportation: No Lack of Food: Never True Current Housing: I Have Housing Concerned About Future Housing: No Difficulty Paying Gas/Electric Bills: No Difficulty Paying for Meds: No Currently Unemployed: No Education: Bachelor's Degree Difficulty w/ Childcare or Family Care: No Living arrangements: alone Additional living arrangements comments: The patient lives in his own home in [place]. Occupation/Educatio
--- NOTE | 2023-06-27 20:18 | ECG_ITS ---
Measurements Intervals Bern Rate: 85 P: 6 AL: 168 QRS: 3 QRSD: 125 T: 43 QT: 369 QTc: 439 Interpretive Statements SINUS RHYTHM POSSIBLE RIGHT VENTRICULAR CONDUCTION DELAY [RSR (QR) IN V1/V2] PROBABLE INFERIOR MYOCARDIAL INFARCTION , PROBABLY OLD [35 ms Q WAVE IN II/aVF] ABNORMAL ECG COMPARED TO ECG 07/10/2022 13:56:30 NO SIGNIFICANT CHANGES Electronically Signed On 06-28-2023 15:06:02 FUR SORTER by Erick Duran M.D.
[2023-06-27 20:24] LABS: Appearance Urine Clear (Clear); Bilirubin Urine Negative (Negative); Blood Urine Negative (Negative); Color Urine Yellow (Yellow); Glucose Urine UA Negative (Negative); Ketones Urine Negative (Negative); Leukocyte Esterase Ur Negative LEU/UL (Negative); Nitrate Urine Negative (Negative); Protein Urine Negative (Negative); Specific Grav Ur 1.023 (1.001-1.035); Urobilinogen Urine 0.2 mg/dL (<2.0); pH Urine 5.5 (5.0-9.0)
[2023-06-27] MEDS: SODIUM CHLORIDE 0.9% IV 1,000 ML 999 ML IV CONT (20:24)
[2023-06-27] MEDS: ONDANSETRON INJ 4 MG/2 ML VIAL IV PUSH (20:25)
[2023-06-27] MEDS: FAMOTIDINE 20 MG/2 ML VIAL IV PUSH (20:27)
[2023-06-27] MEDS: MORPHINE SULFATE (*CRX) 4 MG/ML INJ IV PUSH (20:27)
[2023-06-27 20:34] LABS: Add Urine Microscopic? NO
[2023-06-27 20:46] VITALS: BP 118/67; PULSE 80; RESP 20; O2SAT 97
[2023-06-27 20:57] LABS: Lactic Acid Reflex 1.4 mmol/L (0.7-2.0)
[2023-06-27 21:01] LABS: CRP 4.6 mg/dL (<1.0); Magnesium 2.1 mg/dL (1.6-2.3)
[2023-06-27 21:03] LABS: Partial Thromboplastin Time 29.3 SECONDS (22.3-36.8)
[2023-06-27 21:10] LABS: Troponin I < 0.012 ng/mL (0.000-0.034)
[2023-06-27 21:55] LABS: Influenza A QL RT-PCR Negative (Negative); Influenza B QL RT-PCR Negative (Negative); RSV RNA, RT-PCR Negative (Negative); SARS-CoV-2 RNA PCR Negative (Negative)
[2023-06-27 22:50] VITALS: BP 138/72; PULSE 80; RESP 22; TEMP 36.6; O2SAT 100
== END 2023-06-27 22:51 | disposition home or self-care (01) ==
PROVIDERS: Emergency Provider Student in an Organized Health Care Education/Training Program; PCP Internal Medicine
DX: K52.9 Noninfective gastroenteritis and colitis, unspecified (principal); K20.90 Esophagitis, unspecified without bleeding; Z20.822 Contact with and (suspected) exposure to COVID-19; J44.9 Chronic obstructive pulmonary disease, unspecified; K21.9 Gastro-esophageal reflux disease without esophagitis; E78.5 Hyperlipidemia, unspecified; I10 Essential (primary) hypertension; G47.33 Obstructive sleep apnea (adult) (pediatric); M10.9 Gout, unspecified; Z86.73 Personal history of transient ischemic attack (TIA), and cerebral infarction without residual deficits; Z87.891 Personal history of nicotine dependence; Z79.02 Long term (current) use of antithrombotics/antiplatelets; R94.31 Abnormal electrocardiogram [ECG] [EKG]
CPT/HCPCS: 36415; 71045; 74177; 80053; 81003; 83605; 83690; 83735; 84484; 85025; 85610; 85730; 86140; 86850; 86900; 86901; 87637; 93005; 96361; 96374; 96375; 99284; J2270; J2405; J7030; Q9967

== ENCOUNTER 2024-03-30 07:27 | Outpatient (CLI) | payer MEDICARE, SELFPAY ==
--- NOTE | 2024-03-30 07:46 | ECHO_ITS ---
Patient Info Name: Niels Persaud Age: 68 years : 1955 Gender: Male Ht: 74 in Wt: 267 lbs BSA: 2.55 m2 HR: 63 bpm BP: 138 / 84 mmHg Technical Quality: Fair Exam Date: 03/30/2024 8:12 AM Exam Location: Echo Lab Patient Status: Outpatient Admit Date: 03/30/2024 Staff Ordering Physician: Art Bills DO Gear Keeper: Julisa Whalen RDCS Attending Provider: Art Bills DO Referring Physician: Sanju PIÑA; Exam Type: CA echo doppler color flow Study Info Indications I45.10 - Unspecified right bundle-branch block Complete two-dimensional, color flow and Doppler transthoracic echocardiogram is performed. Strain analysis performed. Summary 1. Complete two-dimensional, color flow and Doppler transthoracic echocardiogram is performed. 2. Left ventricular chamber dimension is normal. 3. Left ventricular systolic function is normal, estimated at 60-65%. 4. The left ventricular diastolic function is grade I diastolic dysfunction. 5. E/e' 8 is minimally elevated. 6. Global longitudinal strain is abnormal at -15.8%. 7. There is mild aortic valve sclerosis. 8. No pulmonary hypertension, estimated pulmonary arterial systolic pressure is 33 mmHg. Left Ventricle E/e' 8 is minimally elevated. Global longitudinal strain is abnormal at -15.8%. Left ventricular chamber dimension is normal. Left ventricular systolic function is normal, estimated at 60-65%. The left ventricular diastolic function is grade I diastolic dysfunction. Right Ventricle Right ventricular chamber dimension is normal. Right ventricular systolic function is normal. Left Atria Left atrial chamber dimension is normal. Right Atria Right atrial chamber dimension is normal. Aortic Valve The aortic valve is trileaflet. There is mild aortic valve sclerosis. There is no aortic valve stenosis. There is no aortic valve regurgitation. Pulmonic Valve There is no pulmonic regurgitation. Mitral Valve There is no mitral valve stenosis. There is no mitral valve regurgitation. Tricuspid Valve There is no tricuspid valve regurgitation. No pulmonary hypertension, estimated pulmonary arterial systolic pressure is 33 mmHg. Pericardium/Pleural There is no pericardial effusion. Inferior Vena Cava Normal inferior vena cava with >50% collapse upon inspiration consistent with normal right atrial pressure, 5 mmHg. Aorta The aortic root size at the sinus of Valsalva is normal. Left Ventricular Outflow Tract Name Value Normal LVOT 2D LVOT Diameter 2.0 cm LVOT Doppler LVOT Peak Gradient 5 mmHg LVOT Mean Gradient 3 mmHg LVOT VTI 21 cm LVOT VTI/AV VTI Ratio 0.8 LVOT Stroke Volume 66 ml LVOT CO 4.1 l/min LVOT CI 1.6 l/min/m2 Pulmonic Valve Name Value Normal RVOT Doppler RVOT Peak Gradient 2 mmHg PV Doppler PV Peak Gradient 5 mmHg Mitral Valve Name Value Normal MV Doppler MV Decel [place] 138 cm/s2 MV PHT 104 ms MV Area (PHT) 2.1 cm2 4.0-5.0 MV Diastolic Function MV E Peak Velocity 50 cm/s MV A Peak Velocity 67 cm/s MV E/A 0.7 MV Decel Time 360 ms Tricuspid Valve Name Value Normal TV Regurgitation Doppler TR Peak Velocity 263 cm/s TR Peak Gradient 28 mmHg Estimated PAP/RSVP RA Pressure 5 mmHg <=5 PA Systolic Pressure 33 mmHg <36 RV Systolic Pressure 33 mmHg <36 Aorta Name Value Normal Ascending Aorta Ao Root Diameter (MM) 3.2 cm Ao Root Diam Index (MM) 1.2 cm/m2 Aortic Valve Name Value Normal AV Doppler AV Peak Velocity 137 cm/s AV Peak Gradient 8 mmHg AV Mean Gradient 4 mmHg AV VTI 26 cm AV Area (Cont Eq VTI) 2.5 cm2 >=3.0 AV Area (Cont Eq Darío) 2.5 cm2 AV Regurgitation 2D LVOT Area 3.1 cm2 Ventricles Name Value Normal LV Dimensions 2D/MM IVS Diastolic Thickness (2D) 1.1 cm 0.6-1.0 IVS Diastole Thickness (MM) 1.1 cm 0.6-1.0 LVID Diastole (2D) 4.5 cm 4.2-5.8 LVID Diastole (MM) 6.0 cm 4.2-5.8 LVIW Diastolic Thickness (2D) 1.1 cm 0.6-1.0 LVIW Diastolic Thickness (MM) 1.0 cm 0.6-1.0 LVID Systole (2D) 3.1 cm 2.5-4.0 LVID Systole (MM) 4.4 cm 2.5-4.0 LVOT Diameter 2.0 cm LV Mass (2D Cubed) 176.07 g 88.00-224.00 LV Mass Index (2D Cubed) 69 g/m2 49-115 Relative Wall Thickness (2D) 0.50 LV Mass (MM Cubed) 259.96 g 88.00-224.00 LV Mass Index (MM Cubed) 102 g/m2 49-115 Relative Wall Thickness (MM) 0.33 LV Fractional Shortening/Ejection Fraction 2D/MM LV Fractional Shortening (2D) 30 % 25-43 LV Fractional Shortening (MM) 27 % 25-43 LV EF (MM Teicholz) 52 % 52-72 LV EF (2D Teicholz) 57 % 52-72 LV Diastolic Volume (4C MOD) 95 ml LV EF (4C MOD) 70 % LV Diastolic Volume (2C MOD) 77 ml LV EF (2C MOD) 58 % LV Diastolic Volume (BP MOD) 85 ml 62-150 LV Diastolic Volume Index (BP MOD) 33 ml/m2 34-74 LV Systolic Volume (BP MOD) 31 ml 21-61 LV Systolic Volume Index (BP MOD) 12 ml/m2 11-31 LV EF (BP MOD) 64 % 52-72 LV Diastolic Length (4C) 8.8 cm LV Systolic Length (4C) 7.7 cm LV Stroke Volume (4C MOD) 66 ml Atria Name Value Normal LA Dimensions LA Dimension (MM) 4.2 cm 3.0-4.1 LA Volume (4C A-L) 46 ml LA Volume (BP A-L) 48 ml RA Dimensions RA Area (4C) 11.9 cm2 <=18.0 EchoPAC Name Value Normal AutoEF LVCO_BiP_Q (Efea2JKO) 4.2 l/min LVEF_BiP_Q (Wdhq3VYO) 66 % LVSV_BiP_Q (Htuy8BCE) 74 ml LVVED_BiP_Q (Klab5YCK) 112 ml LVVES_BiP_Q (Iexy9WYD) 38 ml HR_4Ch_Q (Ltdh4PPG) 58 bpm LVCO_4Ch_Q (Jgyj6XEV) 4.2 l/min LVEF_4Ch_Q (Sozu5BMX) 66 % LVLd_4Ch_Q (Pcpy2DVZ) 9.4 cm LVLs_4Ch_Q (Mldx7SSU) 7.8 cm LVSV_4Ch_Q (Cqnq5OVU) 72 ml LVVED_4Ch_Q (Irtr3SWW) 110 ml LVVES_4Ch_Q (Kxns7WKL) 38 ml HR_2Ch_Q (Ruah3VTW) 56 bpm LVCO_2Ch_Q (Afaj5OKA) 4.2 l/min LVEF_2Ch_Q (Cskh3LYD) 66 % LVLd_2Ch_Q (Gbtt0RYA) 9.4 cm LVLs_2Ch_Q (Ufsz9XRT) 8.1 cm LVSV_2Ch_Q (Oonq8IHJ) 76 ml LVVED_2Ch_Q (Mhac8XSN) 115 ml LVVES_2Ch_Q (Crql7BLK) 39 ml MARY ALICE AA peak sys SL (AWMA) 12.8 % AAS peak sys SL (AWMA) 8.6 % AI peak sys SL (AWMA) 30.4 % AL peak sys SL (AWMA) 10.6 % AP peak sys SL (AWMA) 7.6 % peak sys SL (AWMA) 21.8 % AVC (AWMA) 395 ms BA peak sys SL (AWMA) 18.0 % BAS peak sys SL (AWMA) 5.8 % BI peak sys SL (AWMA) 12.2 % BL peak sys SL (AWMA) 25.8 % BP peak sys SL (AWMA) 18.1 % BS peak sys SL (AWMA) 15.6 % G peak SL(A2C) (AWMA) 16.0 % G peak SL(A4C) (AWMA) 19.2 % G peak SL(APLAX) (AWMA) 11.9 % G peak SL(Avg) (AWMA) 15.7 % MA peak sys SL (AWMA) 11.0 % MAS peak sys SL (AWMA) 13.1 % MT peak sys SL (AWMA) 18.4 % ML peak sys SL (AWMA) 21.4 % MP peak sys SL (AWMA) 17.8 % MS peak sys SL (AWMA) 19.4 % Report Signatures
== END 2024-03-30 07:28 | disposition home or self-care (01) ==
LOC: ANHCARD 07:28
PROVIDERS: PCP Internal Medicine; Visit Provider Internal Medicine Cardiovascular Disease
DX: R93.1 Abnormal findings on diagnostic imaging of heart and coronary circulation (principal); I51.89 Other ill-defined heart diseases; I35.8 Other nonrheumatic aortic valve disorders; I45.10 Unspecified right bundle-branch block
CPT/HCPCS: 93306